=== PATIENT | male | born 1940 | race Caucasian/White ===

== ENCOUNTER → 2017-04-04 | Outpatient (CLI) | payer MEDICARE, OTHER ==
[2014-10-04 14:53] VITALS: BMI 31.2
[~2017-04-04] MED LIST: ACE500 PO; ADV250/50 INH; ALB0.5 INH; ALBU8.5H IH; ASC500 PO; ASPI-715 PO; AZIT-17 PO; AZIT1PAC21 PO; CAR3.125 PO; CAR6.25 PO; CARV12.577 PO; CEPH250C11; CEPH250C11 PO; CHOL100052 PO; CIPR-214 PO; CIPR-344 PO; CYAN100088 PO; DICL-195 PO; DIPH1TAB PO; DOXY-228 PO; ERG400 PO; ERGO500025 PO; FENT-16 TD; FENT-23 TD; FERR27TA3 PO; FERR325T14 PO; FLU IM; FLU180SY9 IM; FLU45SYR17 IM; FLU45SYR25 IM ONLY; FLUC100T39 PO; FLUT12HF2 IH; FLUT1AER INH; FOLI-68 PO; FUR40 PO; FURO-45 PO; FURO20TA19 PO; FURO40TA35 PO; GAB300 PO; GABA-549 PO; GUALA600 PO; HYD2 PO; HYDR-393 PO; IPRA0.2S31 IH; LEVO-85 PO; LEVO750T25 PO; LOP2 PO; LOR5 PO; LOR7.5/325 PO; METH4TAB66 PO; OXYC-375 PO; OXYC-865 PO; PNEU0.5D3 IM; POT10 PO; POTA-23 PO; POTA20PA10 PO; QUE100 PO; QUET200T PO; QUET50TA PO; RAMI2.5C42 PO; ROBC PO; SERT-177 PO; SERT-181 PO; SIMV-44 PO; SIMV-49 PO; SPIR25TA78 PO; SULF-198 PO; TAMS0.4C69 PO; TAMS0.4C70 PO; TAMS0.4C76 PO; VANC125C3 PO; VENTOLIN HFA PUFF; ZOL5 PO; [UNRECOGNIZED DRUG - CODE] PO; hydrocodone PO
[2017-04-04 11:19] LABS: PLATELET COUNT, AUTOMATED 112 K/uL (150-450)
== END ==
LOC: LAB 10:57
PROVIDERS: ATTEND Internal Medicine
DX: I10 Essential (primary) hypertension (principal); E87.6 Hypokalemia; G47.00 Insomnia, unspecified; I25.10 Atherosclerotic heart disease of native coronary artery without angina pectoris; R73.01 Impaired fasting glucose; G89.4 Chronic pain syndrome; C61 Malignant neoplasm of prostate
CPT/HCPCS: 36415; 82040; 82247; 82310; 82374; 82435; 82565; 82947; 83036; 83735; 84075; 84132; 84155; 84295; 84443; 84450; 84460; 84520; 85025

== ENCOUNTER 2017-04-28 14:00 | Inpatient (IN) | payer MEDICARE, OTHER ==
[~2017-04-28] VITALS: Ht 180.3 cm; Wt 108.9 kg
[2017-04-28] MEDS ORDERED: FURO40TA35 PO (14:19)
--- NOTE | 2017-04-28 14:21 | ER Report ---
History and Physical Time Seen By MD: 14:21 Hx. of Stated Complaint: N/V, WEAKNESS, WORSENING CHEST PAIN HPI/ROS 76-year-old male ambulatory to the ER has seen his primary care physician this morning states that he is nauseated vomiting and has had a subjective fever anorexia is 1-1/2 weeks . vomiting yesterday and today was here to be evaluated by his primary care physician started vomiting in the waiting room was brought to the emergency room Allergies: Coded Allergies: meperidine (Verified Allergy, Severe, MAKES HIM VIOLENTLY ILL, DROPS HIS BP, 09/27/15) albuterol (Verified Adverse Reaction, Mild, MAKES FACE NUMB, FLUSH, ) Home Meds Active Scripts Fentanyl 100 Mcg Patch (FENTANYL 100 MCG PATCH) 1 Each Patch.td72, 1 EACH TD Q48H, #15 PATCH.72H refill on or after 06/20/2017 Prov:DANIELA CRUZ MD 04/28/17 Acetaminophen/Hydrocodone (HYDROCODON-ACETAMINOPHN 10-325) 1 Each Tab, 1 TAB PO BID Y for prn, #60 TAB 0 Refills Refill on or after 06/20/2017 Prov:DANIELA CRUZ MD 04/28/17 Quetiapine Fumarate (QUETIAPINE FUMARATE) 50 Mg Tablet, 50 MG PO QHS, #90 TAB 1 Refill Prov:DANIELA CRUZ MD 04/04/17 Potassium Chloride (KLOR-CON 10) 10 Meq Tablet.er, 10 MEQ PO QDAY, #30 TAB 6 Refills Prov:DANIELA CRUZ MD 07/04/16 Sertraline Hcl (SERTRALINE HCL) 100 Mg Tablet, 1.5 TAB PO DAILY, #135 TAB 1 Refill Prov:DANIELA CRUZ MD 03/11/16 Reported Medications Furosemide (LASIX) 40 Mg Tablet, 1 TAB PO Q8H, TAB 04/28/17 Folic Acid (FOLIC ACID) 1 Mg Tablet, 1 MG PO QDAY, TAB 12/07/15 Cyanocobalamin (Vitamin B-12) (B-12) 1,000 Mcg Tablet.er, 1000 MCG PO QDAY 12/07/15 Cephalexin Monohydrate (CEPHALEXIN) 250 Mg Cap, #90 10/07/14 Discontinued Reported Medications Fluticasone/Vilanterol 100/25 Mcg/Inh (BREO ELLIPTA 100/25 MCG) 1 Each Aer.pow.ba, 1 INH INH QDAY, INH 10/14/16 Discontinued Scripts Fentanyl 100 Mcg Patch (FENTANYL 100 MCG PATCH) 1 Each Patch.td72, 1 EACH TD Q48H, #15 PATCH.72H Prov:DANIELA CRUZ MD 04/22/17 Acetaminophen/Hydrocodone (HYDROCODON-ACETAMINOPHN 10-325) 1 Each Tab, 1 TAB PO BID Y for prn, #60 TAB 0 Refills Refill on or after 03/25/18 Prov:DANIELA CRUZ MD 04/22/17 Past Medical/Surgical History Past surgical history of pacemaker in 2009 colostomy in 2012 rectal surgery in 2012 3 para colovesicular fistula past medical history chronic pelvic pain history of CHF history of bile viral myocarditis history of hyperlipidemia history of COPD history of sleep apnea history of GERD history of indwelling urine catheter since repair of the rectal vesicular fistula 12 or 13 history of dermatitis history depression history of elevated glucose Reviewed Nurses Notes: Yes Old Medical Records Reviewed: Yes Hx Smoking: Yes Smoking Status: Former Smoker Exposure to Second Hand Smoke?: No Hx Substance Use Disorder: No Hx Alcohol Use: No Family History of: HTN Constitutional Vital Sign - Last 24 Hours 04/28/17 04/28/17 04/28/17 04/28/17 14:12 14:13 14:30 14:30 Temp 98.6 Pulse 91 84 Resp 24 20 B/P (MAP) 175/76 (109) 175/76 Pulse Ox 91 90 O2 Delivery Nasal Cannula O2 Flow Rate 2.0 04/28/17 04/28/17 04/28/17 04/28/17 14:57 15:00 15:30 17:00 Pulse 80 73 Resp 10 20 B/P (MAP) 155/74 (101) 155/77 (103) 141/60 (87) 138/53 (81) Intake and Output 04/28/17 04/28/17 04/29/17 15:00 23:00 07:00 Intake Total 1100 ml Balance 1100 ml Physical Exam 76 year old male appears chronically ill. casey, tm non reddened, mucous membranes dry, hrr, lungs diminished , pain right chest to right cva , abdomen obese , bs x 4 Medical Decision Making Data Points Result Diagram: 04/28/17 0000 04/28/17 0000 Laboratory Hematology Test 04/28/17 00:00 04/28/17 14:42 Red Blood Count 4.48 M/uL (4.00-5.60) Mean Corpuscular Volume 89.8 fL (80.0-96.0) Mean Corpuscular Hemoglobin 30.7 pg (26.0-33.0) Mean Corpuscular Hemoglobin Concent 34.2 g/dL (32.0-36.0) Red Cell Distribution Width 14.6 % (11.5-14.5) Mean Platelet Volume 7.4 fL (7.2-11.1) Neutrophils (%) (Auto) 88.3 % (39.4-72.5) Lymphocytes (%) (Auto) 5.0 % (17.6-49.6) Monocytes (%) (Auto) 4.1 % (4.1-12.4) Eosinophils (%) (Auto) 1.4 % (0.4-6.7) Basophils (%) (Auto) 1.2 % (0.3-1.4) Nucleated RBC Relative Count (auto) 0.0 /100WBC Neutrophils # (Auto) 4.5 K/uL (2.0-7.4) Lymphocytes # (Auto) 0.3 K/uL (1.3-3.6) Monocytes # (Auto) 0.2 K/uL (0.3-1.0) Eosinophils # (Auto) 0.1 K/uL (0.0-0.5) Basophils # (Auto) 0.1 K/uL (0.0-0.1) Nucleated RBC Absolute Count (auto) 0.00 K/uL Sodium Level 142 mmol/L (137-145) Potassium Level 3.4 mmol/L (3.5-5.0) Chloride Level 98 mmol/L (98-107) Carbon Dioxide Level 27 mmol/L (22-30) Blood Urea Nitrogen 12 mg/dl (9-21) Creatinine 1.00 mg/dl (0.66-1.25) Glomerular Filtration Rate Calc > 60.0 Random Glucose 132 mg/dl (75-110) Calcium Level 9.0 mg/dl (8.4-10.2) Total Bilirubin 1.2 mg/dl (0.2-1.3) Aspartate Amino Transf (AST/SGOT) 38 U/L (0-35) Alanine Aminotransferase (ALT/SGPT) 50 U/L (0-56) Alkaline Phosphatase 98 U/L (0-126) Troponin I < 0.012 ng/ml Total Protein 8.1 gm/dl (6.3-8.2) Albumin 4.4 g/dl (3.5-5.0) Lipase 91 U/L (23-300) Influenza Virus Type A (PCR) Negative (NEGATIVE) Influenza Virus Type B (PCR) Negative (NEGATIVE) Urine Color Yellow Urine Clarity Cloudy Urine pH 5.0 pH (4.8-9.5) Urine Specific [place] 1.026 Urine Protein 100 mg/dL (NEGATIVE) Urine Glucose (UA) Negative mg/dL (NEGATIVE) Urine Ketones Negative mg/dL (NEGATIVE) Urine Blood Large (NEGATIVE) Urine Nitrite Positive (NEGATIVE) Urine Bilirubin Negative (NEGATIVE) Urine Urobilinogen Negative mg/dL (0.2-1.9) Urine Leukocyte Esterase Large (NEGATIVE) Urine RBC 423 /HPF (0-2/HPF) Urine WBC 136 /HPF (0-5/HPF) Urine Squamous Epithelial Cells Many /LPF (</=FEW) Urine Bacteria Few /HPF (NONE-FEW) Urine Mucus Few /HPF (NONE-FEW) Chemistry Test 04/28/17 00:00 04/28/17 14:42 White Blood Count 5.1 k/uL (4.5-11.0) Red Blood Count 4.48 M/uL (4.00-5.60) Hemoglobin 13.8 g/dL (14.0-18.0) Hematocrit 40.2 % (42.0-52.0) Mean Corpuscular Volume 89.8 fL (80.0-96.0) Mean Corpuscular Hemoglobin 30.7 pg (26.0-33.0) Mean Corpuscular Hemoglobin Concent 34.2 g/dL (32.0-36.0) Red Cell Distribution Width 14.6 % (11.5-14.5) Platelet Count 119 K/uL (150-450) Mean Platelet Volume 7.4 fL (7.2-11.1) Neutrophils (%) (Auto) 88.3 % (39.4-72.5) Lymphocytes (%) (Auto) 5.0 % (17.6-49.6) Monocytes (%) (Auto) 4.1 % (4.1-12.4) Eosinophils (%) (Auto) 1.4 % (0.4-6.7) Basophils (%) (Auto) 1.2 % (0.3-1.4) Nucleated RBC Relative Count (auto) 0.0 /100WBC Neutrophils # (Auto) 4.5 K/uL (2.0-7.4) Lymphocytes # (Auto) 0.3 K/uL (1.3-3.6) Monocytes # (Auto) 0.2 K/uL (0.3-1.0) Eosinophils # (Auto) 0.1 K/uL (0.0-0.5) Basophils # (Auto) 0.1 K/uL (0.0-0.1) Nucleated RBC Absolute Count (auto) 0.00 K/uL Glomerular Filtration Rate Calc > 60.0 Calcium Level 9.0 mg/dl (8.4-10.2) Total Bilirubin 1.2 mg/dl (0.2-1.3) Aspartate Amino Transf (AST/SGOT) 38 U/L (0-35) Alanine Aminotransferase (ALT/SGPT) 50 U/L (0-56) Alkaline Phosphatase 98 U/L (0-126) Troponin I < 0.012 ng/ml Total Protein 8.1 gm/dl (6.3-8.2) Albumin 4.4 g/dl (3.5-5.0) Lipase 91 U/L (23-300) Influenza Virus Type A (PCR) Negative (NEGATIVE) Influenza Virus Type B (PCR) Negative (NEGATIVE) Urine Color Yellow Urine Clarity Cloudy Urine pH 5.0 pH (4.8-9.5) Urine Specific [place] 1.026 Urine Protein 100 mg/dL (NEGATIVE) Urine Glucose (UA) Negative mg/dL (NEGATIVE) Urine Ketones Negative mg/dL (NEGATIVE) Urine Blood Large (NEGATIVE) Urine Nitrite Positive (NEGATIVE) Urine Bilirubin Negative (NEGATIVE) Urine Urobilinogen Negative mg/dL (0.2-1.9) Urine Leukocyte Esterase Large (NEGATIVE) Urine RBC 423 /HPF (0-2/HPF) Urine WBC 136 /HPF (0-5/HPF) Urine Squamous Epithelial Cells Many /LPF (</=FEW) Urine Bacteria Few /HPF (NONE-FEW) Urine Mucus Few /HPF (NONE-FEW) Urinalysis Test 04/28/17 14:42 Urine Color Yellow Urine Clarity Cloudy Urine pH 5.0 pH (4.8-9.5) Urine Specific [place] 1.026 Urine Protein 100 mg/dL (NEGATIVE) Urine Glucose (UA) Negative mg/dL (NEGATIVE) Urine Ketones Negative mg/dL (NEGATIVE) Urine Blood Large (NEGATIVE) Urine Nitrite Positive (NEGATIVE) Urine Bilirubin Negative (NEGATIVE) Urine Urobilinogen Negative mg/dL (0.2-1.9) Urine Leukocyte Esterase Large (NEGATIVE) Urine RBC 423 /HPF (0-2/HPF) Urine WBC 136 /HPF (0-5/HPF) Urine Squamous Epithelial Cells Many /LPF (</=FEW) Urine Bacteria Few /HPF (NONE-FEW) Urine Mucus Few /HPF (NONE-FEW) EKG/Imaging EKG Interpretation EKG at 1414 paced rhythm rate 88 Imaging FACILITY: [facility] PATIENT NAME: Cal Arboleda : 1940 MR: [id number] V: [id number] EXAM DATE: ORDERING PHYSICIAN: ESTEPHANIA WING TECHNOLOGIST: Location: [facility] - [place] Patient: Cal Arboleda : 1940 Visit/Account:[id number] Date of Sevice: 04/28/2017 CT abdomen and pelvis without contrast Indication: Vomiting. Comparison: 02/04/2017. Technique: Axial CT images are obtained through the abdomen and pelvis. Reformatted coronal and sagittal images were reviewed. IV contrast was not administered. One of the following dose optimization techniques was utilized in the performance of this exam: automated exposure control; adjustment of the mA and/ or kV according to the patient's size; or use of an iterative reconstruction technique. Specific details can be referenced in the facility's radiology CT exam operational policy. Findings: Lower lung teixeira: The left lower lobe does show 2 stable subcentimeter nodules and scarring. There is a stable subcentimeter nodule seen in the right middle lobe. The largest in the left lower lobe measures 7 mm. No focal consolidations or pleural effusion. Evaluation of the solid organs of the abdomen is limited without IV contrast. Liver: No focal parenchymal abnormality of the liver. Biliary: Gallbladder appears unremarkable as well as the intra and extra hepatic biliary system. Pancreas: No focal normality. Spleen: Continues show mild enlargement measuring 14.8 cm and the AP dimension and not significantly changed. No focal abnormality. Adrenal glands: Right adrenal gland shows a stable 1.6 cm adenoma. Left adrenal gland is unremarkable. Kidneys / retroperitoneum: No evidence of nephrolithiasis or hydronephrosis. No focal normality. Bowel / peritoneum / mesenteries: Ostomy is in place in the mid left abdomen without focal abnormality. The distal colon is decompressed with multiple sigmoid diverticula without pericolonic inflammation. The remaining colon shows no focal abnormality. The appendix is normal. The small bowel shows no focal abnormality or obstruction. The stomach is unremarkable. There may be a small hiatal hernia. No free air, free fluid, fluid collections or areas of inflammation. Small umbilical hernia containing fat. Lymph node assessment: No pathologic adenopathy identified. Pelvic structures: Urinary bladder contains a Arnett catheter and is decompressed. Prostate again shows multiple metallic seeds. The remaining pelvic structures visualized within normal limits. Vessels: Mild atherosclerotic calcifications seen throughout a nonaneurysmal abdominal aorta and branches. Musculoskeletal / Body wall: No acute or aggressive osseous abnormality. Mild degenerative changes of the spine. IMPRESSION: 1. No acute intra-abdominal abnormality identified. 2. Colostomy is in place without sequelae. Sigmoid diverticulosis without radiographic indication diverticulitis. 3. Other chronic stable findings as above. Report Dictated By: Tarun Rivas at 04/28/2017 4:12 PM Report E-Signed By: Tarun Rivas at 04/28/2017 4:26 PM WSN:[id number] ED Course/Re-evaluation Clinical Indication for ER IV: Hydration ED Course Discussed patient with hospitalist Dr. Kruger agreed to admit patient to observation for UTI nausea and vomiting Re-evaluation CT chest reading is no acute abnormality, remains nauseated after zofran and promethazine Decision to Disposition Date: Apr 28, 2017 Decision to Disposition Time: 17:09 Depart Departure Latest Vital Signs Vital Signs Date Time Temp Pulse Resp B/P (MAP) Pulse Ox O2 Delivery O2 Flow Rate FiO2 04/28/17 17:00 138/53 (81) 04/28/17 15:30 73 20 04/28/17 14:30 2.0 04/28/17 14:30 90 04/28/17 14:13 98.6 Nasal Cannula Impression: Primary Impression: History of colostomy Additional Impressions: Chronic indwelling Arnett catheter UTI (urinary tract infection) Vomiting Condition: Condition Unchanged Disposition: Admitted from ER Referrals: DANIELA CRUZ MD (PCP) Problem Qualifiers ESTEPHANIA WING Apr 28, 2017 14:21
[2017-04-28] MEDS ORDERED: ONDANSETRON 4 MG/2 ML VIAL IVP ONE (14:25)
[2017-04-28] MEDS ORDERED: NS(*) 0.9% 1000 ML BAG 1,000 ML IV ONE (14:25)
[2017-04-28 14:39] LABS: PLATELET COUNT, AUTOMATED 119 K/uL (150-450)
[2017-04-28] MEDS ORDERED: fentaNYL CITR 100 MCG/2 ML AMP IVP ONE (15:20)
[2017-04-28] MEDS ORDERED: cefTRIAXone(*) 1 GM VIAL 1 GM in NS(*) 0.9% 100 ML ADDVANT BAG 100 ML IVPB ONE (15:30)
--- NOTE | 2017-04-28 16:30 | RADIOLOGY IMAGING REPORT ---
[place] [facility] [place] Cal Arboleda : 1940 MR: [id number] V: [id number] EXAM DATE: ORDERING PHYSICIAN: ESTEPHANIA WING TECHNOLOGIST: Location: [facility] Patient: Cal Arboleda : 1940 Visit/Account:[id number] Date of Sevice: 04/28/2017 CT abdomen and pelvis without contrast Indication: Vomiting. Comparison: 02/04/2017. Technique: Axial CT images are obtained through the abdomen and pelvis. Reformatted coronal and sagit richard images were reviewed. IV contrast was not administered. One of the following dose optimization techniques was utilized in the performance of this exam: auto mated exposure control; adjustment of the mA and/or kV according to the patient's size; or use of an iterative reconstruction technique. Specific details can be referenced in the facility's radiology C T exam operational policy. Findings: Lower lung teixeira: The left lower lobe does show 2 stable subcentimeter nodules and scarring. There i s a stable subcentimeter nodule seen in the right middle lobe. The largest in the left lower lobe bryan sures 7 mm. No focal consolidations or pleural effusion. Evaluation of the solid organs of the abdomen is limited without IV contrast. Liver: No focal parenchymal abnormality of the liver. Biliary: Gallbladder appears unremarkable as well as the intra and extra hepatic biliary system. Pancreas: No focal normality. Spleen: Continues show mild enlargement measuring 14.8 cm and the AP dimension and not significantly changed. No focal abnormality. Adrenal glands: Right adrenal gland shows a stable 1.6 cm adenoma. Left adrenal gland is unremarkable . Kidneys / retroperitoneum: No evidence of nephrolithiasis or hydronephrosis. No focal normality. Bowel / peritoneum / mesenteries: Ostomy is in place in the mid left abdomen without focal abnormalit y. The distal colon is decompressed with multiple sigmoid diverticula without pericolonic inflammatio n. The remaining colon shows no focal abnormality. The appendix is normal. The small bowel shows no f ocal abnormality or obstruction. The stomach is unremarkable. There may be a small hiatal hernia. No free air, free fluid, fluid collections or areas of inflammation. Small umbilical hernia containin g fat. Lymph node assessment: No pathologic adenopathy identified. Pelvic structures: Urinary bladder contains a Arnett catheter and is decompressed. Prostate again s hows multiple metallic seeds. The remaining pelvic structures visualized within normal limits. Vessels: Mild atherosclerotic calcifications seen throughout a nonaneurysmal abdominal aorta and bran ches. Musculoskeletal / Body wall: No acute or aggressive osseous abnormality. Mild degenerative changes of the spine. IMPRESSION: 1. No acute intra-abdominal abnormality identified. 2. Colostomy is in place without sequelae. Sigmoid diverticulosis without radiographic indication div erticulitis. 3. Other chronic stable findings as above. Report Dictated By: Tarun Rivas at 04/28/2017 4:12 PM Report E-Signed By: Tarun Rivas at 04/28/2017 4:26 PM WSN:[id number]
[2017-04-28] MEDS ORDERED: PROMETHAZINE 25 MG/ML 1 ML AMP IVP ONE (17:00)
[2017-04-28 18:07] VITALS: BP 127/91
--- NOTE | 2017-04-28 18:57 | History & Physical ---
History of Present Illness Chief Complaint Back pain/nausea and vomiting History of Present Illness 76yo male with extensive PMHx including prostate cancer, suprapubic catheter following surgery for rectovesical fistula surgery, diverting colostomy, chronic pelvic pain, BRIDGETT. He states he had onset of increasing back pain with associated nausea approximately 1-2 weeks ago. He has not appreciated any obvious fevers or chills. He has been having more pelvic pain with what he feels are bladder spasms as well. He does still have some urinary and rectal drainage of urine with these spasms occasionally. He denies any black or bloody vomitus. He denies any bloody ostomy drainage. He did state he had some dark drainage in his ostomy a few days ago. He was evaluated in the ER and found to have pyuria from his suprapubic cath. His WBC count was in normal range. He was recommended for admission. History Problems: (1) Peripheral neuropathy Status: Chronic (2) Hypercholesterolemia Status: Chronic (3) Congestive heart failure Status: Chronic (4) COPD (chronic obstructive pulmonary disease) Status: Chronic (5) GERD (gastroesophageal reflux disease) Status: Chronic (6) CAD (coronary artery disease) Status: Chronic (7) Depression, endogenous Status: Chronic (8) Hypertension Status: Chronic (9) Prostate cancer Status: Chronic (10) Pacemaker Status: Chronic (11) BRIDGETT on CPAP Status: Chronic (12) Ankle fracture, right Onset Date: 09/30/2014 Status: Resolved (13) Suprapubic catheter Status: Chronic (14) History of cardiac catheterization Status: Resolved (15) History of colostomy Status: Chronic Home Meds Active Scripts Fentanyl 100 Mcg Patch (FENTANYL 100 MCG PATCH) 1 Each Patch.td72, 1 EACH TD Q48H, #15 PATCH.72H refill on or after 06/20/2017 Prov:DANIELA CRUZ MD 04/28/17 Acetaminophen/Hydrocodone (HYDROCODON-ACETAMINOPHN 10-325) 1 Each Tab, 1 TAB PO BID Y for prn, #60 TAB 0 Refills Refill on or after 06/20/2017 Prov:DANIELA CRUZ MD 04/28/17 Quetiapine Fumarate (QUETIAPINE FUMARATE) 50 Mg Tablet, 50 MG PO QHS, #90 TAB 1 Refill Prov:DANIELA CRUZ MD 04/04/17 Potassium Chloride (KLOR-CON 10) 10 Meq Tablet.er, 10 MEQ PO QDAY, #30 TAB 6 Refills Prov:DANIELA CRUZ MD 07/04/16 Sertraline Hcl (SERTRALINE HCL) 100 Mg Tablet, 1.5 TAB PO DAILY, #135 TAB 1 Refill Prov:DANIELA CRUZ MD 03/11/16 Reported Medications Furosemide (LASIX) 40 Mg Tablet, 1 TAB PO Q8H, TAB 04/28/17 Folic Acid (FOLIC ACID) 1 Mg Tablet, 1 MG PO QDAY, TAB 12/07/15 Cyanocobalamin (Vitamin B-12) (B-12) 1,000 Mcg Tablet.er, 1000 MCG PO QDAY 12/07/15 Cephalexin Monohydrate (CEPHALEXIN) 250 Mg Cap, #90 10/07/14 Discontinued Reported Medications Fluticasone/Vilanterol 100/25 Mcg/Inh (BREO ELLIPTA 100/25 MCG) 1 Each Aer.pow.ba, 1 INH INH QDAY, INH 10/14/16 Discontinued Scripts Fentanyl 100 Mcg Patch (FENTANYL 100 MCG PATCH) 1 Each Patch.td72, 1 EACH TD Q48H, #15 PATCH.72H Prov:DANIELA CRUZ MD 04/22/17 Acetaminophen/Hydrocodone (HYDROCODON-ACETAMINOPHN 10-325) 1 Each Tab, 1 TAB PO BID Y for prn, #60 TAB 0 Refills Refill on or after 03/25/18 Prov:DANIELA CRUZ MD 04/22/17 Allergies: Coded Allergies: meperidine (Verified Allergy, Severe, MAKES HIM VIOLENTLY ILL, DROPS HIS BP, 09/27/15) albuterol (Verified Adverse Reaction, Mild, MAKES FACE NUMB, FLUSH, ) Patient History: FH: [place] (myocardial infarction) FATHER, , Age:67 FH: cancer SISTER FH: diabetes mellitus SISTER FH: esophageal cancer FATHER, , Age:67 FH: renal failure SISTER Osteoarthritis SISTER Hx Smoking: Yes Smoking Status: Former Smoker Exposure to Second Hand Smoke?: No Caffeine Intake: Soda Caffeine/Cups Per Day: 1 Hx Alcohol Use: No Hx Substance Use Disorder: No Review of Systems Constitutional: No Fever, No Chills Neurological: Weakness Eyes: No Vision Change, No Loss of Vision ENT: No Hearing Loss Cardiovascular: No Chest Pain Respiratory: No Shortness of Breath, No Cough, No Wheezing Gastrointestinal: Nausea, Vomiting, No Hematemesis, No Hematochezia, Melena, Abdominal Pain Genitourinary: Urinary Incontinence Musculoskeletal: Pain Psychiatric: Depression Exam Vital Signs Vital Signs Date Time Temp Pulse Resp B/P (MAP) Pulse Ox O2 Delivery O2 Flow Rate FiO2 04/28/17 18:19 92 Nasal Cannula 3.0 04/28/17 18:07 98.2 83 16 127/91 (103) General Appearance: Alert, Awake Neuro: Other (motor exam grossly normal) Eyes: PERRLA ENT: Oropharynx Clear Neck: No Masses Cardiovascular: Regular Rate and Rhythm Respiratory: Clear to Auscultation Chest: No Tenderness GI: Other (distended/LUQ ostomy with greenish brown stool/healed surgical scars in LLQ and suprapubic area/suprapubic cath in place) : No CVA Tenderness Lymph: No Adenopathy Extremities: Warm, Perfused Integumentary: Skin Intact without Lesion / Mass Psych: Alert & Oriented X3 Medical Decision Making Data Points Result Diagram: 04/28/17 0000 04/28/17 0000 Item Value Date Time Lipase 123 U/L 04/28/17 1247 Amylase Level 67 U/L 04/28/17 1247 Albumin 4.0 g/dl 04/28/17 1247 Total Protein 7.3 gm/dl 04/28/17 1247 Alkaline Phosphatase 91 U/L 04/28/17 1247 Alanine Aminotransferase (ALT/SGPT) 47 U/L 04/28/17 1247 Aspartate Amino Transf (AST/SGOT) 32 U/L 04/28/17 1247 Total Bilirubin 1.1 mg/dl 04/28/17 1247 Calcium Level 8.7 mg/dl 04/28/17 1247 Troponin I < 0.012 ng/ml 04/28/17 0000 Urine Color Yellow 04/28/17 1442 Urine Clarity Cloudy 04/28/17 1442 Urine pH 5.0 pH 04/28/17 1442 Urine Specific [place] 1.026 04/28/17 1442 Urine Protein 100 mg/dL 04/28/17 1442 Urine Glucose (UA) Negative mg/dL 04/28/17 1442 Urine Ketones Negative mg/dL 04/28/17 1442 Urine Blood Large 04/28/17 1442 Urine Nitrite Positive H 04/28/17 1442 Urine Bilirubin Negative 04/28/17 1442 Urine Urobilinogen Negative mg/dL 04/28/17 1442 Urine Leukocyte Esterase Large H 04/28/17 1442 Urine RBC 423 /HPF 04/28/17 1442 Urine WBC 136 /HPF 04/28/17 1442 Urine Squamous Epithelial Cells Many /LPF H 04/28/17 1442 Urine Bacteria Few /HPF 04/28/17 1442 Urine Mucus Few /HPF 04/28/17 1442 Influenza Virus Type B (PCR) Negative 04/28/17 0000 Influenza Virus Type A (PCR) Negative 04/28/17 0000 EKG / Imaging Imaging PATIENT NAME: Cal Arboleda : 1940 MR: [id number] V: [id number] EXAM DATE: [id number] ORDERING PHYSICIAN: JACQUELYN REYES TECHNOLOGIST: [place] [facility] [place] : 1940 Visit/Account:[id number] Date of Sevice: 04/28/2017 CT chest without contrast Indication: Shortness of breath. Comparison: None available Technique: Axial CT images are obtained through the chest without administration of IV contrast. One of the following dose optimization techniques was utilized in the performance of this exam: Automated exposure control; adjustment of the mA and/ or kV according to the patient's size; or use of an iterative reconstruction technique. Specific details can be referenced in the facility's radiology CT exam operational policy.Reformatted coronal and sagittal images were reviewed. Findings: Heart is normal size without pericardial effusion. Left subclavian pacemakers in place. The aorta does show mild atherosclerotic calcific changes without aneurysm. Pulmonary arteries are grossly normal. There is no mediastinal hematoma and there is no pathologic mediastinal adenopathy seen. The left lung shows at least 4 nodules. Left upper lobe on image #21 measuring 4 mm, subcentimeter pleural-based calcific nodule on image #24, left lateral lower lobe on image #79 measuring 7 mm and left lower lobe laterally on image # 82 measuring 5 mm. The right middle lobe does show a 3 mm nodule on image #68. No other discrete lung nodules. No focal consolidation, pleural effusion, pneumothorax or focal interstitial opacities. Airways are clear. Scarring in the left lower lobe. Bony structures show no acute fractures or discrete lesions. Mild degenerative changes spine. Chest wall shows no enlarged axillary lymph nodes or masses. The right adrenal gland does show 1.3 cm nodule [place]oun[place] of 9 consistent with benign adenoma. This is unchanged from the CT of the abdomen pelvis on 2005. Upper abdomen is otherwise unremarkable. IMPRESSION: 1. No acute cardiopulmonary disease. 2. Bilateral lung nodules. These are too small characterize and could be postinflammatory as there is one calcified nodule representing granuloma. The 2 left lower lobe nodules appear similar to the CT abdomen pelvis on 03/28/2006. As the upper lobe nodules were not previously visualized or imaged. Suggest follow-up per Fleischner guidelines described below. 3. Stable right adrenal gland adenoma. FLEISCHNER SOCIETY FOLLOW-UP GUIDELINES FOR NEWLY DETECTED INCIDENTAL NODULES IN PERSONS 35 YEARS OF AGE OR OLDER. *THESE RECOMMENDATIONS DO NOT APPLY TO LUNG CANCER SCREENING, PATIENTS WITH IMMUNOSUPPRESSION , OR PATIENTS WITH KNOWN PRIMARY MALIGNANCY. MULTIPLE SOLID NODULES If largest nodule size is less than 6 mm: Low risk patient - no follow up needed High risk patient - Optional CT at 12 months. If largest nodule size is 6-8 mm: Low risk patient - follow up CT at 3-6 months, then consider CT at 18-24 months if no change. High risk patient - follow up CT at 3-6 months, then CT at 18-24 months if no change. If largest nodule size is greater than 8 mm: Low risk patient - follow up CT at 3-6 months, then consider CT at 18-24 months High risk patient - follow up CT at 3-6 months, then at 18-24 months LOW RISK PATIENT: Minimal or absent history of tobacco use and of other known risk factors. HIGH RISK PATIENT: Tobacco use, family history of lung cancer, upper pulmonary lobe location of nodule, presence of emphysema, pulmonary fibrosis, older age. Gema H, Tiffany DP, Frankie JM, et al. Guidelines for Management of Incidental Pulmonary Nodules Detected on CT Images: From the Fleischner Society 2017. Radiology. Report Dictated By: Tarun Rivas at 04/28/2017 3:01 PM Report E-Signed By: Tarun Rivas at 04/28/2017 3:09 PM [id number] PATIENT NAME: Cal Arboleda : 1940 MR: [id number] V: [id number] EXAM DATE: ORDERING PHYSICIAN: ESTEPHANIA WNIG TECHNOLOGIST: [place] [facility] [place] Arbol[place] : 1940 Visit/Account:[id number] Date of Sevice: 04/28/2017 CT abdomen and pelvis without contrast Indication: Vomiting. Comparison: 02/04/2017. Technique: Axial CT images are obtained through the abdomen and pelvis. Reformatted coronal and sagittal images were reviewed. IV contrast was not administered. One of the following dose optimization techniques was utilized in the performance of this exam: automated exposure control; adjustment of the mA and/ or kV according to the patient's size; or use of an iterative reconstruction technique. Specific details can be referenced in the facility's radiology CT exam operational policy. Findings: Lower lung teixeira: The left lower lobe does show 2 stable subcentimeter nodules and scarring. There is a stable subcentimeter nodule seen in the right middle lobe. The largest in the left lower lobe measures 7 mm. No focal consolidations or pleural effusion. Evaluation of the solid organs of the abdomen is limited without IV contrast. Liver: No focal parenchymal abnormality of the liver. Biliary: Gallbladder appears unremarkable as well as the intra and extra hepatic biliary system. Pancreas: No focal normality. Spleen: Continues show mild enlargement measuring 14.8 cm and the AP dimension and not significantly changed. No focal abnormality. Adrenal glands: Right adrenal gland shows a stable 1.6 cm adenoma. Left adrenal gland is unremarkable. Kidneys / retroperitoneum: No evidence of nephrolithiasis or hydronephrosis. No focal normality. Bowel / peritoneum / mesenteries: Ostomy is in place in the mid left abdomen without focal abnormality. The distal colon is decompressed with multiple sigmoid diverticula without pericolonic inflammation. The remaining colon shows no focal abnormality. The appendix is normal. The small bowel shows no focal abnormality or obstruction. The stomach is unremarkable. There may be a small hiatal hernia. No free air, free fluid, fluid collections or areas of inflammation. Small umbilical hernia containing fat. Lymph node assessment: No pathologic adenopathy identified. Pelvic structures: Urinary bladder contains a Arnett catheter and is decompressed. Prostate again shows multiple metallic seeds. The remaining pelvic structures visualized within normal limits. Vessels: Mild atherosclerotic calcifications seen throughout a nonaneurysmal abdominal aorta and branches. Musculoskeletal / Body wall: No acute or aggressive osseous abnormality. Mild degenerative changes of the spine. IMPRESSION: 1. No acute intra-abdominal abnormality identified. 2. Colostomy is in place without sequelae. Sigmoid diverticulosis without radiographic indication diverticulitis. 3. Other chronic stable findings as above. Report Dictated By: Tarun Rivas at 04/28/2017 4:12 PM Report E-Signed By: Tarun Rivas at 04/28/2017 4:26 PM [id number] Assessment and Plan Problems: (1) UTI (urinary tract infection) Status: Acute Assessment & Plan: Complicated UTI related to suprapubic cath (or possibly persistent rectovesical fistula). Will culture his urine as well as drainage from penis/rectum. Will cover broadly with IV Primaxin and vancomycin. Modify antibiotics based on culture results. (2) Suprapubic catheter Status: Chronic (3) Vomiting Status: Acute Assessment & Plan: I suspect this is probably related to his acute infection. Will give gentle IV fluids and antiemetics. Watch closely. (4) BRIDGETT on CPAP Status: Chronic Assessment & Plan: Continue CPAP. (5) Chronic pain syndrome Status: Chronic Assessment & Plan: Will continue with his 100mcg fentanyl patch (q48hrs) and use low dose IV fentanyl for breakthrough pain. (6) CAD (coronary artery disease) Status: Chronic Assessment & Plan: He appears stable from this standpoint. He isn't really on a regimen for this at this time. (7) Thrombocytopenia Status: Chronic Assessment & Plan: His platelet count has been chronically low. Will hold off on Lovenox for DVT prophylaxis. Will use SCD/XAVI hose and ambulate as soon as feasible. (8) Depression, endogenous Status: Chronic Assessment & Plan: Continue Zoloft. Venous Thromboembolism Antithrombotics Is Pt On Any Antithrombotics?: No Prophylaxis Tx Contraindicated Pharmacological Contraindicati: Low Platelet Count Heart Failure Ejection Fraction %: 58 RVSP (mmHg): 40 NYHA Class: I Is Patient on PETE Inhibitor?: Yes Is Patient on Beta Candida?: No Admission Weight: 236 Exam Sepsis Risk: No Definite Risk BERNABE STAPLETON MD Apr 28, 2017 18:57
[2017-04-28] MEDS: IMIPENEM/CILASTA(*) 500MG VIAL 500 MG in NS(*) 0.9% 100 ML BAG 100 ML IVPB SCH (20:19)
[2017-04-28] MEDS: NS(*) 0.9% 1000 ML BAG 1,000 ML IV PRN (20:19)
[2017-04-28] MEDS: fentaNYL CITR 100 MCG/2 ML AMP IVP PRN (20:28)
[2017-04-28] MEDS: VANCOMYCIN(*) 1 GM VIAL 1 GM, VANCOMYCIN (*) 0.5 GM VIAL 0.5 GM in NS(*) 0.9% 250 ML BA... IVPB SCH (21:44)
[2017-04-28] MEDS: [UNRECOGNIZED DRUG - OTHER] PO SCH (21:44)
[2017-04-28] MEDS: QUETIAPINE FUM PO SCH (21:44)
[2017-04-28 23:18] VITALS: BP 114/82
[2017-04-29] MEDS: IMIPENEM/CILASTA(*) 500MG VIAL 500 MG in NS(*) 0.9% 100 ML BAG 100 ML IVPB SCH ×4 (02:31→19:15)
[2017-04-29] MEDS: fentaNYL CITR 100 MCG/2 ML AMP IVP PRN ×2 (02:34→15:22)
[2017-04-29 02:39] VITALS: BP 109/55
[2017-04-29 06:00] LABS: PLATELET COUNT, AUTOMATED 69 K/uL (150-450)
--- NOTE | 2017-04-29 07:51 | EKG ---
[place] [facility] [place] NAME: TERI PANDYA : [id number] MR: [id number] V: [id number] EXAM DATE: ORDERING PHYSICIAN: CHRIS BENTON TECHNOLOGIST: APOLLO Han Reason : CP Blood Pressure : / mmHG Vent. Rate : 088 BPM Atrial Rate : 088 BPM P-R Int : 124 ms QRS Dur : 122 ms QT Int : 404 ms P-R-T Axes : 048 -71 095 degrees QTc Int : 488 ms Electronic ventricular pacemaker When compared with ECG of 27-SEP-2015 10:15, Vent. rate has increased BY 15 BPM Confirmed by DORYS GUY ([id number]) on 04/29/2017 2:22:16 PM Referred By: SERENITY Confirmed By:DORYS GUY
[2017-04-29 08:08] VITALS: Ht 180.3 cm; Wt 108.9 kg
[2017-04-29 08:29] VITALS: BP 106/53
[2017-04-29] MEDS: ACETAMINOPHEN 325 MG TAB PO PRN (08:43)
[2017-04-29] MEDS: FOLIC ACID 1 MG TAB PO SCH (08:43)
[2017-04-29] MEDS: SERTRALINE HCL 50 MG TAB PO SCH (08:44)
[2017-04-29] MEDS: VANCOMYCIN(*) 1 GM VIAL 1 GM, VANCOMYCIN (*) 0.5 GM VIAL 0.5 GM in NS(*) 0.9% 250 ML BA... IVPB SCH (09:07)
[2017-04-29] MEDS ORDERED: FENTANYL 100 MCG TD SCH (11:30)
[2017-04-29] MEDS: NS(*) 0.9% 1000 ML BAG 1,000 ML IV PRN (11:36)
[2017-04-29 11:37] VITALS: BP 118/55
--- NOTE | 2017-04-29 11:45 | Hospitalist Progress Note ---
Subjective Progress Notes Subjective The patient continues to have back and flank pain. He also has had periods of feeling "hot". Physical Exam Vital Signs Date Time Temp Pulse Resp B/P (MAP) Pulse Ox O2 Delivery O2 Flow Rate FiO2 04/29/17 11:37 98.4 70 18 118/55 (76) 96 Nasal Cannula 2.5 Intake and Output 04/30/17 07:00 Intake Total 100 ml Output Total 450 ml Balance -350 ml IV Total 100 ml Output Urine Total 450 ml General Appearance: Alert, Awake, No Acute Distress, Other (Appears ill.) Neuro: No Gross deficits Eyes: PERRLA Cardiovascular: Regular Rate and Rhythm Respiratory: Other (Decreased BS throughout.) GI: Soft and Non-Tender Extremities: Warm, Perfused, Other (No edema.) Psych: Appropriate Mood & Affect Result Diagram: 04/29/1753204/29/17532 Assessment and Plan Problems: (1) UTI (urinary tract infection) Status: Acute Assessment & Plan: Complicated UTI related to suprapubic cath (or possibly persistent rectovesical fistula). Will culture his urine as well as drainage from penis. He was initially covered broadly with IV Primaxin and vancomycin. Urine culture is growing a gram negative ilan. Will stop Vanco. Will follow cultures and modify antibiotics further as warranted. (2) Suprapubic catheter Status: Chronic (3) Vomiting Status: Acute Assessment & Plan: I suspect this is probably related to his acute infection. Will give gentle IV fluids and antiemetics. Watch closely. (4) BRIDGETT on CPAP Status: Chronic Assessment & Plan: Continue CPAP. (5) Chronic pain syndrome Status: Chronic Assessment & Plan: Will continue with his 100mcg fentanyl patch (q48hrs) and use low dose IV fentanyl for breakthrough pain. (6) CAD (coronary artery disease) Status: Chronic Assessment & Plan: He appears stable from this standpoint. He isn't really on a regimen for this at this time. (7) Thrombocytopenia Status: Chronic Assessment & Plan: His platelet count has been chronically low. Will hold off on Lovenox for DVT prophylaxis. Will use SCD/XAVI hose and ambulate as soon as feasible. (8) Depression, endogenous Status: Chronic Assessment & Plan: Continue Zoloft. Time Spent on Plan of Care: < 30 min Heart Failure Ejection Fraction %: 58 RVSP (mmHg): 40 NYHA Class: I Is Patient on PETE Inhibitor?: Yes Is Patient on Beta Candida?: No Admission Weight: 236 Exam Sepsis Risk: No Definite Risk DORYS STAPLETON MD Apr 29, 2017 11:45
[2017-04-29 15:00] VITALS: BP 127/66
[2017-04-29 18:41] VITALS: BP 133/58
[2017-04-29] MEDS: [UNRECOGNIZED DRUG - OTHER] PO SCH (20:35)
[2017-04-29] MEDS: QUETIAPINE FUM PO SCH (20:35)
[2017-04-30] MEDS: IMIPENEM/CILASTA(*) 500MG VIAL 500 MG in NS(*) 0.9% 100 ML BAG 100 ML IVPB SCH (02:45)
[2017-04-30 02:47] VITALS: BP 133/58
[2017-04-30] MEDS: NS(*) 0.9% 1000 ML BAG 1,000 ML IV PRN (05:41)
[2017-04-30 05:47] LABS: PLATELET COUNT, AUTOMATED 73 K/uL (150-450)
[2017-04-30 08:15] VITALS: BP 147/67
[2017-04-30] MEDS ORDERED: FENTANYL 100 MCG TD SCH (09:00)
[2017-04-30] MEDS: PROMETHAZINE 25 MG/ML 1 ML AMP IVP PRN ×3 (09:10→19:43)
[2017-04-30] MEDS: FOLIC ACID 1 MG TAB PO SCH (09:44)
[2017-04-30] MEDS: fentaNYL CITR 100 MCG/2 ML AMP IVP PRN ×4 (09:44→21:51)
[2017-04-30] MEDS: SERTRALINE HCL 50 MG TAB PO SCH (09:44)
--- NOTE | 2017-04-30 10:41 | Hospitalist Progress Note ---
Subjective Progress Notes Subjective This patient was admitted for a urinary infection. He had no acute events overnight. Patient Complains of: Cardiovascular: No: Chest Pain Respiratory: No: Shortness of Breath Physical Exam Vital Signs Date Time Temp Pulse Resp B/P (MAP) Pulse Ox O2 Delivery O2 Flow Rate FiO2 04/30/17 08:15 98.5 64 18 147/67 (93) 95 Nasal Cannula 2.5 Cardiovascular: Regular Rate and Rhythm Respiratory: Clear to Auscultation Result Diagram: 04/30/17 0533 04/30/17 0533 Item Value Date Time Urine Culture - Final Complete 04/28/17 1442 Cath Urine Pseudomonas Aeruginosa Assessment and Plan Problems: (1) UTI (urinary tract infection) Status: Acute Assessment & Plan: This was considered a complicated infection secondary to a suprapubic cath (or possibly persistent rectovesical fistula). He was initially placed on treatment with Primaxin and vancomycin. His culture is now positive for pseudomonas. We have converted him to oral levofloxacin, and pharmacy has recommended a 14 day course. (2) Suprapubic catheter Status: Chronic (3) BRIDGETT on CPAP Status: Chronic Assessment & Plan: He is on chronic treatment with CPAP. (4) Chronic pain syndrome Status: Chronic Assessment & Plan: He is on chronic treatment with a Fentanyl patch. (5) Thrombocytopenia Status: Chronic Assessment & Plan: His platelet count has been chronically low. (6) Depression, endogenous Status: Chronic Assessment & Plan: He is on chronic treatment with Zoloft. Heart Failure Ejection Fraction %: 58 RVSP (mmHg): 40 NYHA Class: I Is Patient on PETE Inhibitor?: Yes Is Patient on Beta Candida?: No Admission Weight: 236 Exam Sepsis Risk: No Definite Risk LEXI MAYO DO Apr 30, 2017 10:41
[2017-04-30 12:17] VITALS: BP 137/63
[2017-04-30 14:27] VITALS: BP 138/64
[2017-04-30] MEDS: POTASSIUM CHL 20 MEQ TABCR PO SCH (17:13)
[2017-04-30 19:47] VITALS: BP 147/59
[2017-04-30] MEDS: QUETIAPINE FUM PO SCH (21:02)
[2017-04-30] MEDS: [UNRECOGNIZED DRUG - OTHER] PO SCH (21:02)
[2017-04-30] MEDS: ACETAMINOPHEN 325 MG TAB PO PRN (21:05)
[2017-05-01] MEDS: fentaNYL CITR 100 MCG/2 ML AMP IVP PRN ×2 (01:18→08:13)
[2017-05-01 03:45] VITALS: BP 160/89
[2017-05-01 07:31] VITALS: BP 142/69
[2017-05-01] MEDS: POTASSIUM CHL 20 MEQ TABCR PO SCH (07:36)
[2017-05-01] MEDS: ACETAMINOPHEN 325 MG TAB PO PRN (07:37)
[2017-05-01] MEDS: SERTRALINE HCL 50 MG TAB PO SCH (08:13)
[2017-05-01] MEDS: FOLIC ACID 1 MG TAB PO SCH (08:13)
[2017-05-01] MEDS ORDERED: INFLUENZA VIRUS VAC 0.5 ML SYR IM ONLY ONE (09:00)
[2017-05-01] MEDS ORDERED: APAP/HYDROCODONE 325/10 TAB PO PRN (09:50)
[2017-05-01] MEDS ORDERED: FENTANYL 100 MCG TD SCH (10:00)
[2017-05-01] MEDS ORDERED: LEVOFLOXACIN 500 MG TAB PO SCH (10:00)
[2017-05-01] MEDS ORDERED: FENTANYL PATCH REMOVAL TP SCH (11:30)
[2017-05-01] MEDS ORDERED: POTASSIUM CHL 10% SF LIQ 20MEQ PO ONE (12:00)
[2017-05-01] MEDS ORDERED: POTASSIUM CHL PWDR 20 MEQ PKT PO ONE (12:00)
[2017-05-01] MEDS ORDERED: LEVO-85 PO (12:34)
[2017-05-01] MEDS: PROMETHAZINE 25 MG/ML 1 ML AMP IVP PRN (12:39)
--- NOTE | 2017-05-01 12:45 | Hospitalist Depart ---
Discharge Summary Reason for Hosp/Final Diag: (1) UTI (urinary tract infection) Status: Acute Hospital Course & Plan: He presented with worsening back and nausea. This was considered a complicated infection secondary to a suprapubic cath. He was initially placed on treatment with Primaxin and vancomycin. His culture was positive for pseudomonas. We have converted him to oral levofloxacin, and pharmacy has recommended a 14 day course. He is currently afebrile and has a normal BP/P. (2) Hypokalemia Status: Acute Hospital Course & Plan: Secondary to outpatient Lasix. He is to hold it and take oral potassium. BMP in about a week. (3) Suprapubic catheter Status: Chronic Hospital Course & Plan: Routine care and follow up with Urology at the next available. (4) Pancytopenia Status: Chronic Hospital Course & Plan: Long standing since at least 2007. Recheck CBC in about a week. He should have follow up with a Dispatch Lead. (5) BRIDGETT on CPAP Status: Chronic Hospital Course & Plan: He is on chronic treatment with CPAP. (6) Chronic pain syndrome Status: Chronic Hospital Course & Plan: He is on chronic treatment with a Fentanyl patch and Lortab. (7) Depression, endogenous Status: Chronic Hospital Course & Plan: He is on chronic treatment with Zoloft. Departure Weight (Pounds): 240 Weight (Ounces): 5.0 Result Diagram: 04/30/17 0533 05/01/17 05 Item Value Date Time White Blood Count 5.1 k/uL 04/28/17 0000 White Blood Count 2.4 k/uL L 04/29/17 0533 White Blood Count 2.4 k/uL L 04/30/17 0533 Hemoglobin 13.8 g/dL L 04/28/17 0000 Hemoglobin 10.6 g/dL L 04/29/17 0533 Hemoglobin 11.6 g/dL L 04/30/17 0533 Platelet Count 119 K/uL L 04/28/17 0000 Platelet Count 69 K/uL L 04/29/17 0533 Platelet Count 73 K/uL L 04/30/17 0533 Neutrophils (%) (Auto) 88.3 % H 04/28/17 0000 Neutrophils (%) (Auto) 66.4 % 04/29/17 0533 Neutrophils (%) (Auto) 58.1 % 04/30/17 0533 Sodium Level 142 mmol/L 04/28/17 0000 Sodium Level 135 mmol/L L 04/29/17 0533 Sodium Level 137 mmol/L 04/30/17 0533 Sodium Level 136 mmol/L L 05/01/17 0525 Potassium Level 3.2 mmol/L L 05/01/17 0525 Potassium Level 3.2 mmol/L L 04/30/17 0533 Potassium Level 3.4 mmol/L L 04/29/17 0533 Potassium Level 3.4 mmol/L L 04/28/17 0000 Blood Urea Nitrogen 12 mg/dl 04/28/17 0000 Blood Urea Nitrogen 10 mg/dl 04/29/17 0533 Blood Urea Nitrogen 8 mg/dl L 04/30/17 0533 Blood Urea Nitrogen 7 mg/dl L 05/01/17 0525 Creatinine 0.80 mg/dl 05/01/17 0525 Creatinine 0.90 mg/dl 04/30/17 0533 Creatinine 0.80 mg/dl 04/29/17 0533 Creatinine 1.00 mg/dl 04/28/17 0000 Random Glucose 111 mg/dl H 05/01/17 0525 Random Glucose 88 mg/dl 04/30/17 0533 Random Glucose 85 mg/dl 04/29/17 0533 Random Glucose 132 mg/dl H 04/28/17 0000 Troponin I < 0.012 ng/ml 04/28/17 0000 Lipase 91 U/L 04/28/17 0000 Urine Nitrite Positive H 04/28/17 1442 Urine Leukocyte Esterase Large H 04/28/17 1442 Urine RBC 423 /HPF 04/28/17 1442 Urine WBC 136 /HPF 04/28/17 1442 Urine Bacteria Few /HPF 04/28/17 1442 Urine Mucus Few /HPF 04/28/17 1442 Urine Blood Large 04/28/17 1442 Clostridium Difficile Toxin A & B Negative 04/30/17 1000 Clostridium difficile Antigen Positive 04/30/17 1000 Influenza Virus Type A (PCR) Negative 04/28/17 0000 Influenza Virus Type B (PCR) Negative 04/28/17 0000 Blood cultures without growth from 04/28 x2 PATIENT: TERI PANDYA ACCT: [id number] LOC: MED U : [id number] AGE/SX: 76/M ROOM: [facility] REG : 04/28/[address]: BERNABE STAPLETON MD : 1940 BED: 270 DIS : STATUS: ADM IN TLOC: SPEC #: [id number] BEENA: 04/28/17 STATUS: COMP REQ #: [id number] RECD: 04/28/[address] [facility] [address]: ESTEPHANIA WING APRN SOURCE: ADRIANO ENTR: 04/28/[address] [facility] [address]: DANIELA CRUZ MD SPDESC: CHRIS BENTON MD ORDERED: CULT URINE Procedure Result Verified URINE CULTURE Final 04/30/17-934 Organism 1 PSEUDOMONAS AERUGINOSA >100,000 COL/ML PSE AERUGI M.I.C. RX --------- --- CEFTAZIDIME 16 I CEFEPIME 8 S CIPROFLOXACIN 0.5 S GENTAMICIN <=1 S IMIPENEM 2 S LEVOFLOXACIN 2 S PIPERACILLIN/TAZOBACTAM 32 S TOBRAMYCIN <=1 S Imaging 04/28/17 Abd/Pelvis CT - 1. No acute intra-abdominal abnormality identified. 2. Colostomy is in place without sequelae. Sigmoid diverticulosis without radiographic indication diverticulitis. 3. Other chronic stable findings as above. EKG Vent. Rate : 088 BPM Atrial Rate : 088 BPM P-R Int : 124 ms QRS Dur : 122 ms QT Int : 404 ms P-R-T Axes : 048 -71 095 degrees QTc Int : 488 ms Electronic ventricular pacemaker When compared with ECG of 27-SEP-2015 10:15, Vent. rate has increased BY 15 BPM Confirmed by DORYS GUY ([id number]) on 04/29/2017 2:22:16 PM Condition: Improved Discharge: Home Discharge Instructions Home Meds Active Scripts Levofloxacin 500 Mg Tab (LEVAQUIN 500 MG TAB) 500 Mg Tablet, 500 MG PO QAM, #11 Prov:NILTON GILLILAND MD 05/01/17 Fentanyl 100 Mcg Patch (FENTANYL 100 MCG PATCH) 1 Each Patch.td72, 1 EACH TD Q48H, #15 PATCH.72H refill on or after 06/20/2017 Prov:DANIELA CRUZ MD 04/28/17 Acetaminophen/Hydrocodone (HYDROCODON-ACETAMINOPHN 10-325) 1 Each Tab, 1 TAB PO BID Y for prn, #60 TAB 0 Refills Refill on or after 06/20/2017 Prov:DANIELA CRUZ MD 04/28/17 Quetiapine Fumarate (QUETIAPINE FUMARATE) 50 Mg Tablet, 50 MG PO QHS, #90 TAB 1 Refill Prov:DANIELA CRUZ MD 04/04/17 Potassium Chloride (KLOR-CON 10) 10 Meq Tablet.er, 10 MEQ PO QDAY, #30 TAB 6 Refills Prov:DANIELA CRUZ MD 07/04/16 Sertraline Hcl (SERTRALINE HCL) 100 Mg Tablet, 1.5 TAB PO DAILY, #135 TAB 1 Refill Prov:DANIELA CRUZ MD 03/11/16 Reported Medications Folic Acid (FOLIC ACID) 1 Mg Tablet, 1 MG PO QDAY, TAB 12/07/15 Cyanocobalamin (Vitamin B-12) (B-12) 1,000 Mcg Tablet.er, 1000 MCG PO QDAY 12/07/15 Discontinued Reported Medications Furosemide (LASIX) 40 Mg Tablet, 1 TAB PO QDAY, TAB 04/28/17 Cephalexin Monohydrate (CEPHALEXIN) 250 Mg Cap, #90 10/07/14 Fluticasone/Vilanterol 100/25 Mcg/Inh (BREO ELLIPTA 100/25 MCG) 1 Each Aer.pow.ba, 1 INH INH QDAY, INH 10/14/16 Discontinued Scripts Fentanyl 100 Mcg Patch (FENTANYL 100 MCG PATCH) 1 Each Patch.td72, 1 EACH TD Q48H, #15 PATCH.72H Prov:DANIELA CRUZ MD 04/22/17 Acetaminophen/Hydrocodone (HYDROCODON-ACETAMINOPHN 10-325) 1 Each Tab, 1 TAB PO BID Y for prn, #60 TAB 0 Refills Refill on or after 03/25/18 Prov:DANIELA CRUZ MD 04/22/17 Diet: Regular Activity: As Tolerated Special Instructions: BMP/CBC in 5-7 days to follow potassium and low wbc/platelet count and anemia Follow up with PCP in 1-2 weeks to follow up symptoms and discuss follow up with a Dispatch Lead for the low blood counts. Copies to: DANIELA CRUZ MD Venous Thromboembolism Antithrombotics Is Pt On Any Antithrombotics?: No Heart Failure Ejection Fraction %: 58 RVSP (mmHg): 40 NYHA Class: I Is Patient on PETE Inhibitor?: Yes Is Patient on Beta Candida?: No Admission Weight: 236 NILTON GILLILAND MD May 01, 2017 12:45
--- NOTE | 2017-05-01 13:10 | Medical Nutrition Therapy ---
Nutrition Anthropometrics Height (Inches): 71.00 Height (Calculated Centimeters: 180.917668 Weight (Pounds): 240 Weight (Calculated Kilograms): 109.004 BMI Calculated: 32.07 Keshawn Nutrition Score: Adequate Keshawn Nutrition Risk Score: 20 Dietary Referral Nutrition Risk Factors: Nutrition Risk Comment: Physical Findings Physical Appearance: Obese BMI 30-39 Skin Appearance Skin Appearance: Edema Edema Location Modifier: Both Edema Location: Leg Type of Edema: Degree of Edema: 1+ Gastrointestinal Symptoms GI Symtoms: Nausea Tube Present: Bowel Sounds: Recent Bowel Pattern: Stool Characteristics: Brown, Loose Nutritional Diagnosis Nutritional Risk Acuity 2: V/D > 3 Days, Pr Appetite > 3d Nutritional Risk Acuity 3: Nausea, GERD Past Medical History: prostate cancer, colostomy, BRIDGETT, neuropathy, hypercholesterolemia, CHF, COPD, GERD, CAD, depression, HTN, pacemaker Nutritional Acuity: 2-Moderate Nutrition Diagnosis: Inadequate Food Intake Nutrition Etiology: Physiological Causes Nutrition Problem/Etiology/Sym: Inadequate food inake r/t UTI, N/V, and fever AEB reports of anorexia over 1-2 weeks Energy Requirement: 1920 ([place] Adj) Protein Requirement: 87 (0.8 g/kg) Fluid Requirement: 2180 (20 ml/kg) Diet Type: Diet as Tolerated LATRELL/REG Nutrition Intervention: Cont diet as ordered, Encourage intake Nutrition Monitoring & Eval RD Patient Assessment Time: [address] Assessment Type: RD Assessment Patient Nutrition Acuity: 2-Moderate Follow Up Date: May 03, 2017 Nutritional Comment: 04/29 Pt admitted for UTI. Pt reports N/V, fever, and anorexia over the last 1-2 weeks. Pt has a colostomy. Pt is on clear liquids, no intake documentation available. Notable labs include low H/H, Na 135, K+ 3.4, Ca 7.6, total pro 5.4, and alb 2.8. Pt has non-pitting edema in both legs. Will offer ensure clear as pt has most likely had suboptimal nutrient intake over the last week. Will continue to monitor intakes, labs, etc. 04/30 Pt upgraded to LATRELL with 80% intake of reg portion at one meal. Edema in both legs is now pitting 1+. N/V has resolved. Will continue to encourage intake and monitor labs, edema, etc. ALICE DE LA CRUZ Apr 30, 2017 10:46
[2017-05-03] MEDS ORDERED: PATCH REMOVAL 1 EA TP SCH (10:00)
== END 2017-05-01 14:15 | disposition home or self-care (01) | DRG 699 ==
LOC: ER 14:21 → MED 17:19
PROVIDERS: ADMIT Internal Medicine; ATTEND Internal Medicine
DX: T83.511A Infection and inflammatory reaction due to indwelling urethral catheter, initial encounter (principal); D61.818 Other pancytopenia; F33.2 Major depressive disorder, recurrent severe without psychotic features; G47.33 Obstructive sleep apnea (adult) (pediatric); G89.4 Chronic pain syndrome; E87.6 Hypokalemia; B96.5 Pseudomonas (aeruginosa) (mallei) (pseudomallei) as the cause of diseases classified elsewhere; I11.0 Hypertensive heart disease with heart failure; E78.5 Hyperlipidemia, unspecified; J44.9 Chronic obstructive pulmonary disease, unspecified; K21.9 Gastro-esophageal reflux disease without esophagitis; N39.0 Urinary tract infection, site not specified; G62.9 Polyneuropathy, unspecified; I50.9 Heart failure, unspecified; T50.1X5A Adverse effect of loop [high-ceiling] diuretics, initial encounter; I25.10 Atherosclerotic heart disease of native coronary artery without angina pectoris; Y84.6 Urinary catheterization as the cause of abnormal reaction of the patient, or of later complication, without mention of misadventure at the time of the procedure; Z88.8 Allergy status to other drugs, medicaments and biological substances; Z87.891 Personal history of nicotine dependence; Z93.3 Colostomy status; Z85.46 Personal history of malignant neoplasm of prostate; Z95.0 Presence of cardiac pacemaker
CPT/HCPCS: 36415; 71250; 74176; 81001; 82040; 82150; 82247; 82310; 82374; 82435; 82565; 82947; 83690; 84075; 84132; 84155; 84295; 84450; 84460; 84484; 84520; 85025; 87040; 87077; 87088; 87186; 87324; 87449; 87502; 93005; 96361; 96365; 96375; 97161; 97165; 99285; J0696; J0743; J2405; J2550; J3010; J3370; J7030; J7050

== ENCOUNTER → 2017-04-28 | Outpatient (CLI) | payer MEDICARE, OTHER ==
[2014-10-04 14:53] VITALS: BMI 31.2
[~2017-04-28] MED LIST changes: +FERR-53 PO; -FERR325T14 PO
--- NOTE | 2017-04-28 15:13 | RADIOLOGY IMAGING REPORT ---
FACILITY: [facility] - [place] PATIENT NAME: Cal Arboleda : 1940 MR: [id number] V: [id number] EXAM DATE: ORDERING PHYSICIAN: JACQUELYN REYES TECHNOLOGIST: Location: [facility] Patient: Cal Arboleda : 1940 Visit/Account:[id number] Date of Sevice: 04/28/2017 CT chest without contrast Indication: Shortness of breath. Comparison: None available Technique: Axial CT images are obtained through the chest without administration of IV contrast. One of the following dose optimization techniques was utilized in the performance of this exam: Autom ated exposure control; adjustment of the mA and/or kV according to the patient's size; or use of an i terative reconstruction technique. Specific details can be referenced in the facility's radiology C T exam operational policy.Reformatted coronal and sagittal images were reviewed. Findings: Heart is normal size without pericardial effusion. Left subclavian pacemakers in place. The aorta bañuelos s show mild atherosclerotic calcific changes without aneurysm. Pulmonary arteries are grossly normal. There is no mediastinal hematoma and there is no pathologic mediastinal adenopathy seen. The left lung shows at least 4 nodules. Left upper lobe on image #21 measuring 4 mm, subcentimeter pl eural-based calcific nodule on image #24, left lateral lower lobe on image #79 measuring 7 mm and lef t lower lobe laterally on image #82 measuring 5 mm. The right middle lobe does show a 3 mm nodule on image #68. No other discrete lung nodules. No focal consolidation, pleural effusion, pneumothorax or focal interstitial opacities. Airways are clear. Scarring in the left lower lobe. Bony structures show no acute fractures or discrete lesions. Mild degenerative changes spine. Chest w all shows no enlarged axillary lymph nodes or masses. The right adrenal gland does show 1.3 cm nodule [place] of 9 consistent with benign adenoma. This is unchanged from the CT of the abdomen pelvis on 03/28/2006. Upper abdomen is otherwise unremarkable . IMPRESSION: 1. No acute cardiopulmonary disease. 2. Bilateral lung nodules. These are too small characterize and could be postinflammatory as there is one calcified nodule representing granuloma. The 2 left lower lobe nodules appear similar to the CT abdomen pelvis on 03/28/2006. As the upper lobe nodules were not previously visualized or imaged. Sug gest follow-up per Fleischner guidelines described below. 3. Stable right adrenal gland adenoma. FLEISCHNER SOCIETY FOLLOW-UP GUIDELINES FOR NEWLY DETECTED INCIDENTAL NODULES IN PERSONS 35 YEARS OF AGE OR OLDER. *THESE RECOMMENDATIONS DO NOT APPLY TO LUNG CANCER SCREENING, PATIENTS WITH IMMUNOSUPPRESSION , OR PA TIENTS WITH KNOWN PRIMARY MALIGNANCY. MULTIPLE SOLID NODULES If largest nodule size is less than 6 mm: Low risk patient - no follow up needed High risk patient - Optional CT at 12 months. If largest nodule size is 6-8 mm: Low risk patient - follow up CT at 3-6 months, then consider CT at 18-24 months if no change. High risk patient - follow up CT at 3-6 months, then CT at 18-24 months if no change. If largest nodule size is greater than 8 mm: Low risk patient - follow up CT at 3-6 months, then consider CT at 18-24 months High risk patient - follow up CT at 3-6 months, then at 18-24 months LOW RISK PATIENT: Minimal or absent history of tobacco use and of other known risk factors. HIGH RISK PATIENT: Tobacco use, family history of lung cancer, upper pulmonary lobe location of nodul e, presence of emphysema, pulmonary fibrosis, older age. Gema H, Tiffany DP, Frankie JM, et al. Guidelines for Management of Incidental Pulmonary Nodules Dete cted on CT Images: From the Fleischner Society 2017. Radiology. Report Dictated By: Tarun Rivas at 04/28/2017 3:01 PM Report E-Signed By: Tarun Rivas at 04/28/2017 3:09 PM WSN:[id number]
== END ==
LOC: CT 02:08
PROVIDERS: ATTEND Internal Medicine
DX: R91.8 Other nonspecific abnormal finding of lung field (principal); D35.01 Benign neoplasm of right adrenal gland
CPT/HCPCS: 71250

== ENCOUNTER → 2017-04-28 | Outpatient (CLI) | payer MEDICARE, OTHER ==
[2014-10-04 14:53] VITALS: BMI 31.2
[2017-04-28 12:51] LABS: PLATELET COUNT, AUTOMATED 123 K/uL (150-450)
== END ==
LOC: LAB 12:33
PROVIDERS: ATTEND Internal Medicine
DX: J44.9 Chronic obstructive pulmonary disease, unspecified (principal); R53.83 Other fatigue; R10.9 Unspecified abdominal pain; I10 Essential (primary) hypertension
CPT/HCPCS: 36415; 82040; 82150; 82247; 82310; 82374; 82435; 82565; 82947; 83690; 84075; 84132; 84155; 84295; 84450; 84460; 84520; 85025

== ENCOUNTER → 2017-05-13 | Outpatient (CLI) | payer MEDICARE, OTHER ==
[2017-04-29 08:08] VITALS: BMI 32.1
[2017-05-13 13:08] LABS: PLATELET COUNT, AUTOMATED 130 K/uL (150-450)
== END ==
LOC: LAB 12:55
PROVIDERS: ATTEND Internal Medicine
DX: D61.818 Other pancytopenia (principal); E87.6 Hypokalemia
CPT/HCPCS: 36415; 82310; 82374; 82435; 82565; 82947; 84132; 84295; 84520; 85025

== ENCOUNTER → 2017-07-09 | Outpatient (CLI) | payer MEDICARE, OTHER ==
[2017-04-29 08:08] VITALS: BMI 32.1
[~2017-07-09] MED LIST changes: +AMLO-96 PO
[2017-07-09 16:49] LABS: PLATELET COUNT, AUTOMATED 108 K/uL (150-450)
== END ==
LOC: LAB 16:17
PROVIDERS: ATTEND Internal Medicine
DX: N39.0 Urinary tract infection, site not specified (principal); E87.6 Hypokalemia; I10 Essential (primary) hypertension
CPT/HCPCS: 36415; 82040; 82247; 82310; 82374; 82435; 82565; 82947; 84075; 84132; 84155; 84295; 84450; 84460; 84520; 85025

== ENCOUNTER → 2017-07-10 | Outpatient (CLI) | payer MEDICARE, OTHER ==
[2017-04-29 08:08] VITALS: BMI 32.1
== END ==
LOC: LAB 10:48
PROVIDERS: ATTEND Internal Medicine
DX: N39.0 Urinary tract infection, site not specified (principal); E87.6 Hypokalemia; I10 Essential (primary) hypertension; R82.79 Other abnormal findings on microbiological examination of urine
CPT/HCPCS: 81001; 87088

== ENCOUNTER → 2017-07-17 | Outpatient (CLI) | payer MEDICARE, OTHER ==
[2017-04-29 08:08] VITALS: BMI 32.1
== END ==
LOC: LAB 10:56
PROVIDERS: ATTEND Internal Medicine
DX: N39.0 Urinary tract infection, site not specified (principal)

== ENCOUNTER → 2017-08-04 | Outpatient (CLI) | payer MEDICARE, OTHER ==
[2017-04-29 08:08] VITALS: BMI 32.1
== END ==
LOC: LAB 10:22
PROVIDERS: ATTEND Urology
DX: N30.00 Acute cystitis without hematuria (principal)
CPT/HCPCS: 81001

== ENCOUNTER → 2017-08-25 | Outpatient (CLI) | payer MEDICARE, OTHER ==
[2017-04-29 08:08] VITALS: BMI 32.1
[~2017-08-25] MED LIST changes: -OXYC-375 PO; +OXYC1TAB78 PO
== END ==
LOC: LAB 11:52
PROVIDERS: ATTEND Internal Medicine
DX: G89.4 Chronic pain syndrome (principal); Z98.890 Other specified postprocedural states; Z93.59 Other cystostomy status; Z92.89 Personal history of other medical treatment; B96.89 Other specified bacterial agents as the cause of diseases classified elsewhere
CPT/HCPCS: 81001; 87088

== ENCOUNTER → 2017-08-25 | Outpatient (CLI) | payer MEDICARE, OTHER ==
[2017-04-29 08:08] VITALS: BMI 32.1
== END ==
LOC: LAB 08-13 09:07
PROVIDERS: ATTEND Internal Medicine Cardiovascular Disease
DX: I10 Essential (primary) hypertension (principal); I42.0 Dilated cardiomyopathy; I44.7 Left bundle-branch block, unspecified; R07.9 Chest pain, unspecified
CPT/HCPCS: 36415; 82310; 82374; 82435; 82565; 82947; 83880; 84132; 84295; 84520

== ENCOUNTER → 2017-09-12 | Outpatient (CLI) | payer MEDICARE, OTHER ==
[2017-04-29 08:08] VITALS: BMI 32.1
[~2017-09-12] MED LIST changes: +AMPI500V14 PO; +NS 0.9% 20 ML SDV 40 ML ONE
--- NOTE | 2017-09-12 13:44 | RADIOLOGY IMAGING REPORT ---
FACILITY: [facility] PATIENT NAME: Cal Arboleda : 1940 MR: [id number] V: [id number] EXAM DATE: ORDERING PHYSICIAN: JACQUELYN REYES TECHNOLOGIST: [facility] [place] Patient: Cal Arboleda : 1940 Visit/Account:[id number] Date of Sevice: 09/12/2017 CHEST W/O CONTRAST HISTORY: Worsening shortness of breath with COPD. Former smoker. TECHNIQUE: CT chest without intravenous contrast. One of the following dose optimization techniques was utilized in the performance of this exam: Autom ated exposure control; adjustment of the mA and/or kV according to the patient's size; or use of an i terative reconstruction technique. Specific details can be referenced in the facility's radiology C T exam operational policy. CONTRAST: None. COMPARISON: April 28, 2017. CT abdomen/pelvis dated March 28, 2006 FINDINGS: Heart/vessels: Left chest wall pacer device. Mild/moderate calcification within the and LAD and lef t circumflex. Mild calcification within the left circumflex artery. Prominence of the main pulmonar y artery measuring up to 3.5 cm which is nonspecific however can be seen in the setting of pulmonary arterial hypertension. There is mild left atrial enlargement measuring up to 5.3 center meter's. Ot herwise negative. Mediastinum: Negative. Lymph nodes: Negative. Lungs/pleura: Background of mild paraseptal and centrilobular emphysematous change. Scattered areas of mild pleural pleural/parenchymal scarring. Nodular scarring within the lingula, unchanged. Mild bronchiectasis with bronchial wall thickening and a few scattered airway secretions, likely related to chronic smoking-related airways disease. Punctate 1-2 mm nodule within the right upper lobe (image 129 of series 4), unchanged 3-4 mm nodule w ithin the right middle lobe (image 248), unchanged small intrafissural lymph nodes along the left jaleel or fissure. 2 pleural-based nodules within the left lower lobe base measuring up to 6 x 5 mm (image 260 of series 4), unchanged. Linn shaped 6 x 5 mm nodule within the more central left lower lobe (image 238), unchanged. These left lower lobe nodules are unchanged since CT abdomen/pelvis from 20 06 and are benign given chronicity. Few scattered small calcified granulomas. Visualized upper abdomen: Small right adrenal nodule is unchanged. Probable minimal adenomatous thi ckening of the left adrenal gland. Mild fatty replacement of the visualized pancreas. Postsurgical changes within the colon visualized in the left upper quadrant. Otherwise negative. Bones/soft tissues: Mild/moderate bilateral gynecomastia. Otherwise negative. IMPRESSION: 1. No acute findings. 2. Background of mild centrilobular and paraseptal emphysematous change. 3. Mild bronchiectasis with bronchial wall thickening and a few scattered airway secretions, likely related to chronic smoking-related airways disease. 4. Few scattered micronodules, the largest of which are within the left lung base, unchanged since 2 006 and benign given chronicity. Additional nodules measure up to 4 mm and are unchanged since at le ast April 28, 2017, favored benign. 5. Additional incidental/chronic sinus, as above. Report Dictated By: Vinny Lyon MD at 09/12/2017 1:26 PM Report E-Signed By: Vinny Lyon MD at 09/12/2017 1:38 PM WSN:[id number]
== END ==
LOC: CT 10:54
PROVIDERS: ATTEND Internal Medicine
DX: R91.8 Other nonspecific abnormal finding of lung field (principal)
CPT/HCPCS: 71250; J7050

== ENCOUNTER → 2017-09-29 | Outpatient (REF) | payer MEDICARE, OTHER ==
[2017-04-29 08:08] VITALS: BMI 32.1
[~2017-09-29] MED LIST changes: -NS 0.9% 20 ML SDV 40 ML ONE
== END ==
LOC: ZZSENDIN 09:48
PROVIDERS: ATTEND Urology
DX: N39.0 Urinary tract infection, site not specified (principal); R82.79 Other abnormal findings on microbiological examination of urine
CPT/HCPCS: 81001; 87088

== ENCOUNTER → 2017-10-31 | Outpatient (CLI) | payer MEDICARE, OTHER ==
[2017-04-29 08:08] VITALS: BMI 32.1
[~2017-10-31] MED LIST changes: +DULO30CA35 PO; +DULO60CA56 PO; +MELO-207 PO; +SPIR25TA80 PO
--- NOTE | 2017-10-31 11:51 | RADIOLOGY IMAGING REPORT ---
FACILITY: [facility] PATIENT NAME: Cal Arboleda : 1940 MR: [id number] V: [id number] EXAM DATE: ORDERING PHYSICIAN: DANIELA CRUZ TECHNOLOGIST: Location: [facility] [place] Patient: Cal Arboleda : 1940 Visit/Account:[id number] Date of Sevice: 10/31/2017 2 views thoracic spine INDICATION: Thoracic pain. COMPARISON: CT examination from September 12, 2017 FINDINGS: Lateral view demonstrates the mild multilevel spondylotic changes in the mid and lower thoracic spine . Mild anterior wedging of the mid and lower thoracic vertebra is stable as compared to the prior CT examination likely on a degenerative basis. No evidence of compression fracture. Upper thoracic sp ine are without acute abnormality. Mild dextroscoliotic curvature mid thoracic spine. IMPRESSION: 1. Mild dextroscoliosis with mild multilevel spondylotic changes. No radiographic evidence of acute fracture Further evaluation if needed could be performed with an MRI Report Dictated By: Aakash Dunn MD at 10/31/2017 11:38 AM Report E-Signed By: Aakash Dunn MD at 10/31/2017 11:48 AM WSN:[id number]
== END ==
LOC: RAD 10:55
PROVIDERS: ATTEND Internal Medicine
DX: M47.894 Other spondylosis, thoracic region (principal); M41.84 Other forms of scoliosis, thoracic region
CPT/HCPCS: 72070

== ENCOUNTER → 2017-12-30 | Outpatient (CLI) | payer MEDICARE, OTHER ==
[2017-04-29 08:08] VITALS: BMI 32.1
[~2017-12-30] MED LIST changes: +AMLO-111 PO; -AMLO-96 PO; -RAMI2.5C42 PO; +RAMI2.5C43 PO
--- NOTE | 2017-12-30 10:55 | RADIOLOGY IMAGING REPORT ---
FACILITY: [facility] PATIENT NAME: Cal Arboleda : 1940 MR: [id number] V: [id number] EXAM DATE: ORDERING PHYSICIAN: TELLY MORTON TECHNOLOGIST: Location: [facility] Patient: Cal Arboleda : 1940 Visit/Account:[id number] Date of Sevice: 12/30/2017 EXAMINATION: CT lumbar spine without IV contrast HISTORY: Low back pain. COMPARISON: Lumbar spine radiographs from 02/05/2011. TECHNIQUE: Axial images were obtained through the lumbar spine without IV contrast administration. C oronal and sagittal reformatted images were obtained from the axial source data. One of the following dose optimization techniques was utilized in the performance of this exam: Autom ated exposure control; adjustment of the mA and/or kV according to the patient's size; or use of an i terative reconstruction technique. Specific details can be referenced in the facility's radiology C T exam operational policy. FINDINGS: Alignment: Normal. Vertebral bodies: Negative. Posterior elements: Mild facet hypertrophy in the lower lumbar spine. Hardware: None. Disc spaces: Mild disc space narrowing with mild disc bulges at L3-4 and L4-5. Severe disc space norman rowing and endplate sclerosis with bony spurring and a mild disc bulge eccentric to the left at L5-S1 . There is at least mild right and moderate left foraminal stenosis at L5-S1, without other central canal or foraminal stenosis visualized by CT. Soft tissues: Negative. Visualized retroperitoneal/abdominal structures: Moderate atherosclerotic calcifications. IMPRESSION: Degenerative disc disease and facet arthropathy of the lumbar spine is worst at L5-S1 where there is at least mild right and moderate left foraminal stenosis. No obvious spinal stenosis by CT. Report Dictated By: Nichole Caro MD at 12/30/2017 10:41 AM Report E-Signed By: Nichole Caro MD at 12/30/2017 10:51 AM WSN:[id number]
== END ==
LOC: CT 12-26 13:44
PROVIDERS: ATTEND Nurse Practitioner
DX: M51.36 Other intervertebral disc degeneration, lumbar region (principal); M48.061 Spinal stenosis, lumbar region without neurogenic claudication
CPT/HCPCS: 72131

== ENCOUNTER 2018-02-10 09:23 | Outpatient (RCR) | payer MEDICARE, OTHER ==
[2015-03-21 10:55] VITALS: BP 127/81
[2017-04-29 08:08] VITALS: BMI 32.1
[~2018-02-10 09:23] MED LIST changes: +FENT1PAT TD; +FENT1PAT40 TD; +PREG50CA48 PO; +TIZA-128 PO
[2018-02-10 09:41] LABS: PLATELET COUNT, AUTOMATED 121 K/uL (150-450)
[2018-02-25] MEDS ORDERED: PREG75CA60 PO (08:46)
[2018-02-25] MEDS ORDERED: FENT1PAT40 TD (08:46)
[2018-02-25] MEDS ORDERED: HYDR-393 PO (08:46)
== END 2018-03-04 10:58 | disposition home or self-care (01) ==
LOC: SPU 09:23
PROVIDERS: ATTEND Internal Medicine
DX: D64.9 Anemia, unspecified (principal); I42.9 Cardiomyopathy, unspecified; J44.9 Chronic obstructive pulmonary disease, unspecified; Z85.46 Personal history of malignant neoplasm of prostate; C61 Malignant neoplasm of prostate
CPT/HCPCS: 36415; 82040; 82247; 82310; 82374; 82435; 82565; 82947; 84075; 84132; 84153; 84155; 84295; 84450; 84460; 84520; 85025

== ENCOUNTER 2018-02-17 13:59 | Outpatient (RCR) | payer MEDICARE, OTHER ==
[2017-04-29 08:08] VITALS: BMI 32.1
--- NOTE | 2018-02-17 22:00 | ONCOLOGY FOLLOW UP NOTE ---
EVENT DATE: February 17, 2018 REASON FOR VISIT Patient is here to review updated labs. Known history of prostate carcinoma. Known history of complex pelvic pain syndrome. PERTINENT MEDICAL HISTORY 1. Pollok 7, poorly differentiated adenocarcinoma of the prostate. Patient underwent prostate brachytherapy 06/05/10. 2. History of complex pelvic pain syndrome, status post physical therapy, injection nerve block, and narcotic analgesics, on slow taper at this time. 3. Idiopathic cardiomyopathy. 4. Oxygen-dependent COPD. 5. History of diverting colostomy and suprapubic catheter placement. INTERVAL HISTORY Mr. Arboleda was seen for a followup appointment today. From the prostate cancer standpoint, he is doing remarkably well. PSA is undetectable as of 02/10/18. Denies any new or persistent bone pain. His metabolic panel was normal as well as his CBC with the exception of a slightly low hemoglobin 11.6, which is stable for this patient. The patient informs me that since his last appointment here, he has been seen in the Pain Clinic in [place]. It sounds like they attempted a pudendal nerve block. He had partial relief, and then an alcohol nerve block was performed. Again, he only achieved partial pain relief, unfortunately. He was willing to do a slow taper on the fentanyl patch, and presently, he is on 75 mcg plus 12 mcg, which is down from 100 mcg last year q.48 hours. He has his good days and his bad days. Suprapubic catheter is functioning reasonably well. He does have this changed out every two weeks. His activity level is somewhat limited due to deconditioning. He states that he was started recently on Lyrica, but he is uncertain whether the medication is helping or not at this time. Patient sees Dr. Moreira monthly for pain medication renewals. He has been a very reliable patient to date. Past Medical History Neurologic: Reports hx of: other neurologic history (chronic pelvic pain. fentanyl for years. did not like morphine in 2010. ) Cardiovascular: Reports hx of: CHF (Hx viral myocarditis in 1999. nl cor. angio in 2007. Dr. Briscoe. EF 49%2008) edema hyperlipidemia Respiratory: Reports hx of: COPD (pulm. rehab in 2013. peak flow 270 in 08/18. inhaler use review. 08/18. ) pneumonia (hostpialized in 2007. ) sleep apnea (Dx in 2002. Has cpap and oxygen at [address] Esqueda. ) Gastrointestinal: Reports hx of: GERD other GI history (COLOSTOMY placed 03/19 because) Genitourinary: Reports hx of: other urinary history (indwelling urinary catheter since repair of rectovesicle fistula in 03/19. ) Integumentary: Reports hx of: other integumentary hx (dermatitis on elbows and has used triamcinolone cream. ) Psychiatric: Reports hx of: depression (Tx since myocarditis in 1999. seroquel added in 2008 that helps for sleep. ) other psychiatric history (INSOMNIA. trazodone not helpful and more dreams with ambien. ) Endocrine: Reports hx of: other endocrine history (Hx elevated glucose and on metformin for couple years until lost wt. ) Hematology/oncology (M): Denies hx of: prostate cancer Events: REPORTS HX OF: Other events (abstracted 04/21. Annual exam in early 08/18. ) Past Surgical History Cardiovascular: Reports hx of: pacemaker (2001, 2009) Gastrointestinal: Reports hx of: other GI surgery (COLOSTOMY 2012, RECTAL SURGERY 03/19 to repair colovesical fistula. ) Genitourinary - Male: Reports hx of: other surgery (supra pubic catheter) SOCIAL HISTORY Patient is . One son has fibromyalgia. His daughter is doing a clerkship for a nurse practitioner position in [place]. REVIEW OF SYSTEMS Notable for fatigue. Respiratory status is stable. Denies any active chest pain. Colostomy is functioning adequately. Catheter is functioning reasonably well, though occasional leakage. No return of any dermatitis in the skin or groin area. PHYSICAL EXAMINATION GENERAL: A 77-year-old male in fair general clinical health. He is alert and fully cooperative to examination. He is a reliable historian. VITAL SIGNS: Weight 239. BP 154/91, pulse 91, oxygen 94% on 3L. LUNGS: Clear bilaterally. HEART: Sounds regular. LYMPHATICS: No lymphadenopathy detected. ABDOMEN: Mildly obese. No gross organomegaly. Colostomy location was inspected with no skin irritation. EXTREMITIES: Trace edema bilaterally. Otherwise unchanged from prior exams. IMPRESSION AND PLAN This is a 77-year-old gentleman with remote history of locally aggressive prostate carcinoma who responded to the prostate brachytherapy in 2010 with an undetectable PSA at this time. He does have complex pelvic pain syndrome and has gone through appropriate therapeutic measures to date. He will follow up with the Pain Clinic in a month and continue on the slow taper if possible over the course of a year. All questions were answered to his satisfaction over a 40-minute appointment today. I will see him again in a year with an updated PSA, CBC, and CMP. RHETT
[2018-02-25] MEDS ORDERED: HYDR-393 PO (08:46)
[2018-02-25] MEDS ORDERED: FENT1PAT40 TD (08:46)
[2018-02-25] MEDS ORDERED: PREG75CA60 PO (08:46)
== END 2018-03-04 12:43 | disposition home or self-care (01) ==
LOC: RAON 13:59
PROVIDERS: ATTEND Radiology Radiation Oncology
DX: C61 Malignant neoplasm of prostate (principal); Z92.3 Personal history of irradiation
CPT/HCPCS: 99202

== ENCOUNTER → 2018-05-05 | Outpatient (CLI) | payer MEDICARE, OTHER ==
[2017-04-29 08:08] VITALS: BMI 32.1
[~2018-05-05] MED LIST changes: -AMLO-111 PO; +AMLO-125 PO; +METH1GPT PO; +MIRA50TA PO; +PREG75CA60 PO
--- NOTE | 2018-05-05 10:31 | EKG ---
FACILITY: [facility] [place] PATIENT NAME: TERI PANDYA : [id number] MR: [id number] V: [id number] EXAM DATE: ORDERING PHYSICIAN: STEPHANIE VASQUEZ TECHNOLOGIST: Test Reason : Blood Pressure : / mmHG Vent. Rate : 081 BPM Atrial Rate : 081 BPM P-R Int : 164 ms QRS Dur : 094 ms QT Int : 400 ms P-R-T Axes : 009 -69 091 degrees QTc Int : 464 ms Electronic ventricular pacemaker When compared with ECG of 28-APR-2017 14:14, Vent. rate has decreased BY 7 BPM Confirmed by Vinicio Nuñez ([id number]) on 05/05/2018 10:37:25 PM Referred By: Confirmed By:Vinicio Snider
== END ==
LOC: RESP 09:28
PROVIDERS: ATTEND Nurse Practitioner Family
DX: Z95.0 Presence of cardiac pacemaker (principal); R55 Syncope and collapse; Z91.81 History of falling; W18.00XA Striking against unspecified object with subsequent fall, initial encounter
CPT/HCPCS: 93005

== ENCOUNTER → 2018-05-08 | Outpatient (CLI) | payer MEDICARE, OTHER ==
[2017-04-29 08:08] VITALS: BMI 32.1
--- NOTE | 2018-05-08 11:55 | RADIOLOGY IMAGING REPORT ---
FACILITY: [facility] [place] PATIENT NAME: Cal Arboleda : 1940 MR: [id number] V: [id number] EXAM DATE: ORDERING PHYSICIAN: STEPHANIE VASQUEZ TECHNOLOGIST: Location: [facility] [place] Patient: Cal Arboleda : 1940 Visit/Account:[id number] Date of Sevice: 05/08/[address] scan without contrast HISTORY: Falls, syncope, dizziness COMPARISONS: None TECHNIQUE: Non-contrast head CT was performed with sagittal and coronal reformations. One of the following dose optimization techniques was utilized in the performance of this exam: autom ated exposure control; adjustment of the mA and/or kV according to patient size; or use of iterative reconstruction technique. Specific details can be referenced in the facility's radiology CT exam ope rational policy. FINDINGS: There is no intracranial hemorrhage, hydrocephalus or midline shift. The basal cisterns, martinez-white differentiation, and convexity sulci are maintained. Normal orbital soft tissues. Mild periventricu lar white matter hypoattenuation. Chronic right frontal CSF space expansion versus chronic 5 mm subd ural hygroma. Clear mastoid air cells, small left maxillary sinus mucous retention cyst and normal osseous structur es. IMPRESSION: No acute intracranial abnormality. Mild chronic small vessel ischemic change. 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 Report Dictated By: Vinny Gonsalez MD at 05/08/2018 11:45 AM Report E-Signed By: Vinny Gonsalez MD at 05/08/2018 11:50 AM WSN:[id number]
== END ==
LOC: CT 01:15
PROVIDERS: ATTEND Nurse Practitioner Family
DX: I67.82 Cerebral ischemia (principal); D18.1 Lymphangioma, any site
CPT/HCPCS: 70450

== ENCOUNTER → 2018-05-12 | Outpatient (CLI) | payer MEDICARE, OTHER ==
[2017-04-29 08:08] VITALS: BMI 32.1
--- NOTE | 2018-05-12 10:41 | RADIOLOGY IMAGING REPORT ---
FACILITY: [facility] PATIENT NAME: Cal Arboleda : 1940 MR: [id number] V: [id number] EXAM DATE: ORDERING PHYSICIAN: STEPHANIE VASQUEZ TECHNOLOGIST: Location: [facility] Patient: Cal Arboleda : 1940 Visit/Account:[id number] Date of Sevice: 05/12/2018 Exam type: FOOT 3 VIEWS RIGHT History: Pain in right ankle and joints of right foot Comparison: Right ankle performed today. Findings: There postsurgical changes from open reduction internal fixation of the distal right tibia and fibula . There is severe joint space narrowing involving the right first metatarsal phalangeal joint with i rregularity of the adjacent articular surfaces. There are mild to moderate degenerative changes of t he DIP joints throughout the right foot IMPRESSION: 1. Severe joint space narrowing involving the right first metatarsophalangeal joint with irregularit y of the adjacent articular surfaces consistent with degenerative arthritis Mild to moderate joint changes throughout the DIP joints of the right foot Postsurgical changes of the right ankle Report Dictated By: Joan Willams MD at 05/12/2018 10:34 AM Report E-Signed By: Joan Willams MD at 05/12/2018 10:37 AM WSN:[email or web address]
--- NOTE | 2018-05-12 10:43 | RADIOLOGY IMAGING REPORT ---
FACILITY: [facility] PATIENT NAME: Cal Arboleda : 1940 MR: [id number] V: [id number] EXAM DATE: ORDERING PHYSICIAN: STEPHANIE VASQUEZ TECHNOLOGIST: Location: [facility] Patient: Cal Arboleda : 1940 Visit/Account:[id number] Date of Sevice: 05/12/2018 Exam type: ANKLE 3 VIEW MIN RIGHT History: Pain in right ankle and right foot Comparison: September 30, 2014. Findings: There postsurgical changes from open reduction internal fixation of the distal diaphysis metaphysis a nd epiphysis of the right fibula. Two orthopedic screws transfix the medial malleolus. The all frac tures have been reduced in good anatomic alignment. The ankle mortise appears intact. There is mild soft tissue swelling about the right ankle. No acute fracture-dislocation is seen IMPRESSION: 1. Postsurgical changes from open reduction internal fixation of the distal right fibula and tibia t he old fractures reduced in good anatomic alignment Report Dictated By: Joan Willams MD at 05/12/2018 10:37 AM Report E-Signed By: Joan iWllams MD at 05/12/2018 10:39 AM WSN:[email or web address]
== END ==
LOC: RAD 09:29
PROVIDERS: ATTEND Nurse Practitioner Family
DX: M96.671 Fracture of tibia or fibula following insertion of orthopedic implant, joint prosthesis, or bone plate, right leg (principal)

== ENCOUNTER 2018-07-02 13:00 | Outpatient (RCR) | payer MEDICARE, OTHER ==
[2017-04-29 08:08] VITALS: BMI 32.1
--- NOTE | 2018-05-14 18:52 | PT INITIAL EVALUATION ---
MEDICAL DIAGNOSIS: chronic low back pain TREATMENT DIAGNOSIS: same DATE OF ONSET: 05/14/17 SUBJECTIVE: Cal Arboleda presents to physical therapy with complaints of low back pain that started approximately one year. He reports that the pain is worse with bending, sitting, and better with standing and lying on L side. He reports that he had his "nerves burned" a while back and reports that it helped for about 3 weeks and then the pain returned. Furthermore, he reports that he would like to correct the low back pain conservatively versus surgical intervention.. . Pain location is L1-L5 central and to the R and L. and described as constant and achy. Pain scale is 5 on a ten point pain scale. REHAB PROBLEM LIST: Increased Pain Decreased ROM Decreased Strength Decreased Endurance Decreased Balance Decreased Function Decreased ADL's Decreased Gait PREVIOUS MEDICAL HISTORY: See EMR OCCUPATION: Retired OBJECTIVE: Posture: He demonstrates B rounded shoulders, increased thoracic kyphosis, decreased lumbar lordosis, and forward head. ROM: Trunk AROM: flexion: moderate restriction with pain. extension: minimal restriction with pain. R sidebending: major restriction with pain. L sidebending: major restriction with pain. Palpation: TTP: L1-L5 central and to the R and L Special Tests: Repeated extension: increased pain and peripheralized pain following the movement. flexion: increased pain and peripheralized pain following the movement. L sidegliding: increased pain and centralized pain and better following the movement. Mobility: Independent Gait: He demonstrated antalgic pain due to past fractures ASSESSMENT: Cal will benefit from skilled physical therapy with potential directional preference targeted today, which improves his prognosis to return to prior level of function as we his address his impairments. Short Term Goals 3 weeks: Pt will demonstrate directional preference with his low back pain to improve prognosis for recovery to improve function and QOL. 5 weeks: Pt will demonstrate centralized LBP to improve function and QOL. 8 weeks: If he demonstrates directional preference and centralized LBP, then he will demonstrate abolished LBP and return to prior level of function. Patient's Goals decrease pain and improve function PLAN: Patient to be seen for Manual Therapy/STM/MET Strengthening/condition Ice/Heat Range of Motion Spinal Stabilization Work Hardening/Cond Stretching Iontophoresis Neuromuscular Re-ed Closed Chain Program Electrical Stim Posture/Body mechanics Gait Trg/Balance Trg Home Exercise Program Therapeutic Activities 2x/Week for 2 Months If you have any questions, comments, or concerns about this report or plan, please contact me at . Thank you, Sheldon Blanc, PT, DPT RHETT
[~2018-07-02 13:00] MED LIST changes: +GENT40VI IJ; -VANC125C3 PO; +VANC125C4 PO
--- NOTE | 2018-07-02 16:24 | PT PLAN OF CARE ---
Physician: Dolores Balderas NP Patient is being seen: 2x/week Therapist: Sheldon Blanc, PT, DPT Medical Diagnosis: chronic low back pain Treatment Diagnosis: same Date of Onset: 05/14/17 Date of Initial Evaluation: 05/14/18 Date patient was last seen: 07/02/18 Number of treatments: 10 Number of cancellations/No shows: 0 INTERVENTIONS: Manual Therapy/STM/MET Strengthening/condition Ice/Heat Range of Motion Spinal Stabilization Work Hardening/Cond Stretching Iontophoresis Neuromuscular Re-ed Closed Chain Program Electrical Stim Posture/Body mechanics Gait Trg/Balance Trg Home Exercise Program Therapeutic Activities GOALS: 3 weeks: Pt will demonstrate directional preference with his low back pain to improve prognosis for recovery to improve function and QOL. 5 weeks: Pt will demonstrate centralized LBP to improve function and QOL. 8 weeks: If he demonstrates directional preference and centralized LBP, then he will demonstrate abolished LBP and return to prior level of function. PATIENT'S GOAL: decrease pain and improve function Status of Patient's Goals: Progressing well Patient Compliance: Good Prognosis: Good Reasons for continuing therapy: This is a progress note for Cal Arboleda. Cal reports that his back is doing well and does not really feel any pain in his low back region. He reports that he feels like he is functioning around his house better. However, he reports that the rest of his body feels terrible. He reports that he has intense/extreme catheter pain around his penis that comes and goes throughout the day and is worse with certain positions. He demonstrates significant improvements with his trunk AROM in all directions with normalized end feels. Furthermore, he has demonstrated increased core and B LE strength. We will continue to ensure that his pain stays away, continue to increase strength, and educate how to prevent a low pain back reoccurrence and then we will discharge from PT. Posture: He demonstrates B rounded shoulders, increased thoracic kyphosis, decreased lumbar lordosis, and forward head. ROM: Trunk AROM: flexion: NIL restriction with no pain. extension: NIL restriction with pain. R sidebending: NIL restriction with no pain. L sidebending: NIL restriction with no pain. Strength: Palpation: TTP: No longer TTP. Special Tests: Repeated extension: increased pain and peripheralized pain following the movement. flexion: increased pain and peripheralized pain following the movement. L sidegliding: increased pain and centralized pain and better following the movement. Mobility: Independent Physician: Dolores Balderas NP Signature DATE If you have any questions, please contact me at [phone]. Thank you, Sheldon Blanc, PT, DPT MTDD
[2018-07-13] MEDS ORDERED: METH1GPT PO (13:30)
[2018-07-21] MEDS ORDERED: HYOS-50 SL (09:38)
== END 2018-07-02 18:00 | disposition home or self-care (01) ==
LOC: PT 13:00
PROVIDERS: ATTEND Nurse Practitioner Family
DX: M54.5 Low back pain (principal)
CPT/HCPCS: 97162

== ENCOUNTER → 2018-07-08 | Outpatient (CLI) | payer MEDICARE, OTHER ==
[2017-04-29 08:08] VITALS: BMI 32.1
--- NOTE | 2018-07-08 16:42 | RADIOLOGY IMAGING REPORT ---
FACILITY: [facility] PATIENT NAME: Cal Arboleda : 1940 MR: [id number] V: [id number] EXAM DATE: ORDERING PHYSICIAN: JACQUELYN REYES TECHNOLOGIST: Location: [facility] Patient: Cal Arboleda : 1940 Visit/Account:[id number] Date of Sevice: 07/08/2018 CT CHEST W/O CONTRAST History: Pulmonary nodules TECHNIQUE: Contiguous axial images were performed through the chest to the level of the adrenal gla nds. No IV contrast was administered. Coronal and sagittal reformatting was also performed.Dose Lower ing Technique One of the following dose optimization techniques was utilized in the performance of this exam: Autom ated exposure control; adjustment of the mA and/or kV according to the patient's size; or use of an i terative reconstruction technique. Specific details can be referenced in the facility's radiology C T exam operational policy. COMPARISON STUDIES: September 12, 2018. Lungs / Pleura: 4 mm nodule in the posterior left upper lobe abutting the major fissure appears unc hanged and is best seen on image 18 of series 3. 4 mm pleural-based calcified nodule lateral aspect of the left upper lobe is also unchanged best seen on image 21 7 mm noncalcified nodule lateral aspect the left lower lobe appears unchanged and is best seen on jolene ge 79 5 mm noncalcified nodule lateral aspect left lower lobe also appears unchanged best seen on image 82 3 to 4 mm nodule lateral aspect right middle lobe appears unchanged and is best seen on image 64 There is a thick band of airspace consolidation with bronchial thickening in the inferior lingula lowell t appears similar to the prior study. There is thick linear stranding in the medial right middle lob e that also appears unchanged . There are multiple small nodules measuring up to 3 mm in the posterior sulcus the left lower lobe wit h adjacent linear stranding which were not evident on the prior study. There is also mild peribronch ial thickening in the right middle lobe which has increased in the interim Mediastinum/nodes: negative. Heart and vessels: Implanted pacemaker with leads again seen. Period there are mild coronary artery calcifications Musculoskeletal / Body wall: Scoliosis of the thoracic spine with spondylotic changes Upper abdomen: Small right adrenal nodule appears unchanged IMPRESSION: Previously noted pulmonary nodules appear unchanged. There is however a new collection of micronodules measuring up to 3 mm in the posterior sulcus of the left lower lobe. Mild peribronchial thickening the right middle lobe has increased in the interim There is a thick band of airspace consolidation with bronchial thickening in the inferior lingula lowell t appears similar to the prior study. This may represent scarring although continued surveillance re commended to exclude a slow-growing adenocarcinoma Report Dictated By: Joan Willams MD at 07/08/2018 3:39 PM Report E-Signed By: Joan Willams MD at 07/08/2018 4:37 PM WSN:[email or web address]
== END ==
LOC: CT 01:01
PROVIDERS: ATTEND Internal Medicine
DX: R91.8 Other nonspecific abnormal finding of lung field (principal)
CPT/HCPCS: 71250

== ENCOUNTER → 2018-07-31 | Outpatient (CLI) | payer MEDICARE, OTHER ==
[2017-04-29 08:08] VITALS: BMI 32.1
[~2018-07-31] MED LIST changes: +HYOS-50 SL
--- NOTE | 2018-08-03 11:38 | RT HOLTER TEST ---
FACILITY: [facility] - [place] [place] PATIENT NAME: TERI PANDYA : [id number] MR: [id number] V: [id number] EXAM DATE: ORDERING PHYSICIAN: Fabian SHAIKH TECHNOLOGIST: Hook-up date: 2018-07-31 09:18:00 Duration: 24:00:00 Test Indications: TACHYCARDIA Medications: 456960 QRS complexes 387 Ventricular ectopics which represent <1 % of total QRS comp. 1568 Supraventricular ectopics which represent 1 % of total QRS comp. * Paced QRS complexes which represent % of total QRS comp. VENTRICULAR ECTOPY 369 Isolated 0 Bigeminal Cycles 9 Couplets 0 Runs 0 Beats in Runs * Beats LONGEST at * BPM at :: -- * Beats FASTEST at * BPM at :: -- SUPRAVENTRICULAR ECTOPY 1566 Isolated 1 Couplets 0 Runs 0 Beats in Runs * Beats LONGEST at * BPM at :: -- * Beats FASTEST at * BPM at :: -- HEART RATES 58 MIN at 00:48:14 2018-08-01 76 AVG 132 MAX at 16:21:25 2018-07-31 LONGEST RR 1.128 secs at 06:27:19 2018-08-01 S-T LEVELS Channel 1 -12.800 mm MIN at 09:18:00 2018-07-31 -12.800 mm MAX at 09:18:00 2018-07-31 Channel 2 -12.800 mm MIN at 09:18:00 2018-07-31 -12.800 mm MAX at 09:18:00 2018-07-31 Channel 3 -12.800 mm MIN at 09:18:00 2018-07-31 -12.800 mm MAX at 09:18:00 2018-07-31 There were no reported symptoms. He was predominantly in a sinus rhythm with a wide QRS. There were occasional ventricular ectopy and supraventricular ectopy. The average heart rate was 76 beats per minute. Confirmed by NILTON GILLILAND ([id number]) on 08/03/2018 11:38:27 AM Referred By: Overread By: NILTON GILLILAND
== END ==
LOC: RESP 03:13
PROVIDERS: ATTEND Internal Medicine Cardiovascular Disease
DX: R00.0 Tachycardia, unspecified (principal)
CPT/HCPCS: 93225

== ENCOUNTER 2018-08-11 18:09 | Emergency (ER) | payer MEDICARE, OTHER ==
[2017-04-29 08:08] VITALS: BMI 32.1
[2018-08-11] MEDS ORDERED: NS(*) 0.9% 1000 ML BAG 1,000 ML IV ONE (18:14)
[2018-08-11] MEDS ORDERED: ONDANSETRON 4 MG/2 ML VIAL IVP ONE (18:15)
[2018-08-11] MEDS ORDERED: ACETAMINOPHEN 325 MG TAB PO ONE (18:15)
--- NOTE | 2018-08-11 18:28 | ER Report ---
History and Physical Time Seen By MD: 18:28 Hx. of Stated Complaint: PATIENT STATES THAT AROUND 1600 THE PATIENTS SUPERPUBIC CATHATER CAME OUT; CALLED PATIENT FRIEND WHO IS AN RN TO COME PUT IT BACK IN BUT THEY WERE NOT ABLE TO HPI/ROS CHIEF COMPLAINT: Needs placement of suprapubic catheter HISTORY OF PRESENT ILLNESS: 77-year-old male patient presents to emergency room with complaint of needing a replacement of his suprapubic catheter. Patient states that he had his catheter fall out this afternoon when he was coming in from getting the mail. Patient states that he felt that his pants are wet and we locked the catheter had fallen out. Patient states that he had a friend who is a nurse who attempted to replace the catheter was unsuccessful. Patient came in to get the catheter replaced. Patient denies any fevers, chills, nausea, vomiting or diarrhea. Patient has not taken any medication for this. Allergies: Coded Allergies: meperidine (Verified Allergy, Severe, MAKES HIM VIOLENTLY ILL, DROPS HIS BP, 09/27/15) albuterol (Verified Adverse Reaction, Mild, MAKES FACE NUMB, FLUSH, 09/27/15) Home Meds Active Scripts Hyoscyamine Sulfate (LEVSIN-SL) 0.125 Mg Tab.subl, 0.125 MG SL Q6H PRN for SPASMS for 7 Days, #30 CAP 3 Refills Prov:AUTUMN COVARRUBIAS MD 07/21/18 Methenamine Hippurate (HIPREX) 1 Gm Tab, 1 GM PO DAILY for urinary tract infection for 30 Days, #30 TAB 4 Refills Take one tablet daily with a glass of orange juice Prov:AUTUMN COVARRUBIAS MD 07/13/18 Duloxetine Hcl (CYMBALTA) 60 Mg Capsule.dr, 60 MG PO QDAY, #90 CAP 1 Refill Prov:DANIELA CRUZ MD 06/30/18 Meloxicam (MELOXICAM) 15 Mg Tablet, 15 MG PO QDAY PRN for pain, #90 TAB 1 Refill Prov:DANIELA CRUZ MD 06/10/18 Fentanyl (Fentanyl) 1 Each Patch.td72, 12 MCG TD Q48H, #15 PATCH Prov:DANIELA CRUZ MD 03/24/18 Fentanyl (Fentanyl) 1 Each Patch.td72, 50 MCG TD Q72H, #15 PATCH Prov:DANIELA CRUZ MD 03/24/18 Acetaminophen/Hydrocodone (HYDROCODON-ACETAMINOPHN 10-325) 1 Each Tab, 1 TAB PO BID PRN for prn, #60 TAB Prov:DANIELA CRUZ MD 03/24/18 Mirabegron (MYRBETRIQ) 50 Mg Tab.er.24h, 50 MG PO DAILY for bladder spasm for 30 Days, #30 CAP 3 Refills Prov:AUTUMN COVARRUBIAS MD 03/17/18 Pregabalin (LYRICA) 75 Mg Capsule, 75 MG PO BID, #60 CAPSULE 3 Refills Prov:DANIELA CRUZ MD 02/25/18 Tizanidine Hcl (TIZANIDINE HCL) 4 Mg Tablet, 4 MG PO BID PRN for pain, spasm, #60 TAB 3 Refills Prov:DANIELA CRUZ MD 01/26/18 Quetiapine Fumarate (QUETIAPINE FUMARATE) 50 Mg Tablet, 50 MG PO QHS, #90 TAB 1 Refill Prov:DANIELA CRUZ MD 01/20/18 Potassium Chloride (KLOR-CON 10) 10 Meq Tablet.er, 10 MEQ PO QDAY, #30 TAB 6 Refills Prov:DANIELA CRUZ MD 07/04/16 Reported Medications Amlodipine Besylate (AMLODIPINE BESYLATE) 5 Mg Tablet, 1 TAB PO QDAY, TAB 07/09/17 Folic Acid (FOLIC ACID) 1 Mg Tablet, 1 MG PO QDAY, TAB 12/07/15 Cyanocobalamin (Vitamin B-12) (B-12) 1,000 Mcg Tablet.er, 1000 MCG PO QDAY 12/07/15 Past Medical/Surgical History Patient has a past medical history of viral myocarditis, congestive heart f ailure, hyperlipidemia, sleep apnea, emphysema, pneumonia, COPD, incontinence of urine, diarrhea, leg fracture, ankle fracture, back pain, diabetes, C. difficile, anxiety, suicide attempt, cancer, depression. Patient has a surgical history of tonsillectomy, surgery to bilateral legs, suprapubic catheter, colostomy, pacemaker. Patient has a family medical history of diabetes, CAD, cancer. Reviewed Nurses Notes: Yes Hx Smoking: Yes Smoking Status: Former Smoker Exposure to Second Hand Smoke?: No Hx Substance Use Disorder: No Hx Alcohol Use: No Constitutional Vital Sign - Last 24 Hours 08/11/18 08/11/18 08/11/18 08/11/18 18:22 18:23 18:30 18:39 Temp 97.5 Pulse 74 76 Resp 19 B/P (MAP) 165/76 (105) 165/76 156/75 (102) Pulse Ox 94 95 O2 Delivery Nasal Cannula 08/11/18 08/11/18 08/11/18 08/11/18 19:00 19:09 19:30 19:39 Pulse 76 76 B/P (MAP) 156/68 (97) 162/72 (102) Pulse Ox 95 95 Physical Exam General Appearance: The patient is alert, has no immediate need for airway protection and no current signs of toxicity. Respiratory: Chest is non tender, lungs are clear to auscultation. Cardiac: regular rate and rhythm Gastrointestinal: Abdomen is soft and non tender, no masses, bowel sounds normal. Musculoskeletal: Neck: Neck is supple and non tender. Extremities have full range of motion and are non tender. Skin: No rashes or lesions. Bleeding a small amount from suprapubic catheter. DIFFERENTIAL DIAGNOSIS: After history and physical exam differential diagnosis was considered for need for catheter placement Medical Decision Making ED Course/Re-evaluation ED Course Patient was admitted to examine, history of physical were obtained. Differential diagnoses were considered. On examination lungs are clear, heart is regular, abdomen soft nontender. Patient did have a stress amount of bleeding from the suprapubic catheter site on arrival. The nurse did attempt to replace catheter, was unsuccessful. I was able to get in there and after several minutes was able to place the catheter without any difficulties. Patient did have a small amount of bleeding at that time. We went ahead and watched him for 30 minutes after that to make sure that he was straining. Patient was having urine drainage. We will go ahead and discharge him home at this time. Patient states he does feel safe a better. Patient is to follow-up with his urologist in the next week. He is to have his catheter placed in 2 weeks as per schedule. Patient verbalized understanding and agreement with plan. Decision to Disposition Date: August 11, 2018 Decision to Disposition Time: 19:35 Depart Departure Latest Vital Signs Vital Signs Date Time Temp Pulse Resp B/P (MAP) Pulse Ox O2 Delivery O2 Flow Rate FiO2 08/11/18 19:39 76 95 5/7/19 19:30 162/72 (102) 08/11/18 18:23 97.5 19 Nasal Cannula Impression: Primary Impression: Suprapubic catheter Additional Impression: Urinary catheter change required Condition: Improved Disposition: HOME OR SELF-CARE Referrals: STEPHANIE VASQUEZ BILL DISTRIBUTOR-BC, ONC (PCP) Patient Instructions: Suprapubic Cystostomy and Catheter Insertion (ED) Additional Instructions: Increase fluid intake. Get plenty of rest. You may change the catheter as needed in 2 weeks. Return to the ER with any concerns. Follow up with Dr. Covarrubias with any concerns. Problem Qualifiers ROBIN BAINS August 11, 2018 18:28
[2018-08-11 19:30] VITALS: BP 162/72
== END 2018-08-11 19:48 | disposition home or self-care (01) ==
LOC: ER 18:38
DX: T83.028A Displacement of other urinary catheter, initial encounter (principal)
CPT/HCPCS: 99283; A4338; A4344

== ENCOUNTER → 2018-08-17 | Outpatient (CLI) | payer MEDICARE, OTHER ==
[2017-04-29 08:08] VITALS: BMI 32.1
== END ==
LOC: LAB 08:45
PROVIDERS: ATTEND Nurse Practitioner Family
DX: R53.83 Other fatigue (principal); D51.0 Vitamin B12 deficiency anemia due to intrinsic factor deficiency; I10 Essential (primary) hypertension; M54.9 Dorsalgia, unspecified; G47.00 Insomnia, unspecified; F41.8 Other specified anxiety disorders; Z87.19 Personal history of other diseases of the digestive system; R10.2 Pelvic and perineal pain
CPT/HCPCS: 82607; 84443

== ENCOUNTER → 2018-08-17 | Outpatient (CLI) | payer MEDICARE, OTHER ==
[2017-04-29 08:08] VITALS: BMI 32.1
== END ==
LOC: LAB 08:43
PROVIDERS: ATTEND Urology
DX: Z01.818 Encounter for other preprocedural examination (principal)
CPT/HCPCS: 36415; 82565

== ENCOUNTER → 2018-08-18 | Outpatient (CLI) | payer MEDICARE, OTHER ==
[2017-04-29 08:08] VITALS: BMI 32.1
[~2018-08-18] MED LIST changes: +IOPAMIDOL 76% 100 ML INFUS BTL 100 ML ONE
--- NOTE | 2018-08-18 11:23 | RADIOLOGY IMAGING REPORT ---
FACILITY: [facility] PATIENT NAME: Cal Arboleda : 1940 MR: [id number] V: [id number] EXAM DATE: ORDERING PHYSICIAN: AUTUMN COVARRUBIAS TECHNOLOGIST: Location: Patient: Cal Arboleda : 1940 Visit/Account:[id number] Date of Sevice: 08/18/2018 CT ABDOMEN PELVIS W/ CON HISTORY: bladder spasms, chronic indwelling suprapubic catheter TECHNIQUE: Following administration of IV contrast contiguous axial images acquired through the abdom en/pelvis. Coronal and sagittal reformatting also performed.Dose Lowering Technique One of the following dose optimization techniques was utilized in the performance of this exam: Autom ated exposure control; adjustment of the mA and/or kV according to the patient's size; or use of an i terative reconstruction technique. Specific details can be referenced in the facility's radiology C T exam operational policy. CONTRAST: 75 mL Isovue-370 COMPARISON: April 28, 2017 FINDINGS: Visualized lung bases: There is stable nodules in the lung bases in addition to scarring in the left lower lobe Hepatobiliary: There appear to be several tiny hyperdensities within the gallbladder which may repre sent tiny stones. There is no evidence of biliary ductal dilatation Spleen: Mild splenomegaly is unchanged. Adrenals: Negative. Pancreas: Negative. Kidneys ureters or bladder: Kidneys appear grossly unremarkable. There is a suprapubic bladder rubin ter in place. There is moderate thickening of the bladder wall although may in part be related to un derdistention with urine Genitalia: There are brachytherapy seeds in the prostate GI: Again noted is an ostomy in anterior left mid abdomen. There surgical anastomoses seen in the d ecompressed sigmoid colon and at the splenic flexure Vessels/spaces/nodes: There is moderate atherosclerotic calcination occasions throughout the abdomin al aorta and branch vessels. Bones/soft tissues: No aggressive appearing bone lesions are seen Additional findings: None pertinent. IMPRESSION: Several tiny hyperdensities are seen within the gallbladder which may represent tiny stones. There i s no evidence of biliary ductal dilatation. Mild spinal megaly unchanged Suprapubic bladder catheter is in place. There is moderate bladder wall thickening which may part be related to underdistention with urine Ostomy in the anterior left mid abdomen.. No evidence of bowel obstruction Additional chronic findings as described Report Dictated By: Joan Willams MD at 08/18/2018 10:13 AM Report E-Signed By: Joan Willams MD at 08/18/2018 11:19 AM WSN:[email or web address]
== END ==
LOC: CT 08-13 01:45
PROVIDERS: ATTEND Urology
DX: N39.0 Urinary tract infection, site not specified (principal); N32.89 Other specified disorders of bladder; Z93.59 Other cystostomy status
CPT/HCPCS: 74177; Q9967

== ENCOUNTER 2018-10-04 13:35 | Emergency (ER) | payer MEDICARE, OTHER ==
[2017-04-29 08:08] VITALS: Wt 109.3 kg
--- NOTE | 2018-10-04 13:32 | ER Report ---
History and Physical Time Seen By MD: 13:29 HPI/ROS CHIEF COMPLAINT: Headache, neck pain HISTORY OF PRESENT ILLNESS: Patient is a 77-year-old male here with complaints of headache, C-spine tenderness after a fall on Friday. Patient reports that he was walking discharge when he fell and struck the apex of this head with questionable loss of consciousness. Patient denies being on anticoagulants. He does report some mild confusion but is otherwise neurovascularly intact at time of evaluation moving all extremities spontaneously. There is a healing abrasion on the apex of the scalp REVIEW OF SYSTEMS: Constitutional: No fever, no chills. Eyes: No discharge. ENT: No sore throat. Cardiovascular: No chest pain, no palpitations. Respiratory: No cough, no shortness of breath. Gastrointestinal: No abdominal pain, no vomiting. Genitourinary: No hematuria. Musculoskeletal: No back pain. Skin: Abrasion on the apex of the scalp Neurological: + headache. Allergies: Coded Allergies: meperidine (Verified Allergy, Severe, MAKES HIM VIOLENTLY ILL, DROPS HIS BP, 09/27/15) albuterol (Verified Adverse Reaction, Mild, MAKES FACE NUMB, FLUSH, 09/27/15) Home Meds Active Scripts Hyoscyamine Sulfate (LEVSIN-SL) 0.125 Mg Tab.subl, 0.125 MG SL Q6H PRN for SPASMS for 7 Days, #30 CAP 3 Refills Prov:AUTUMN COVARRUBIAS MD 07/21/18 Methenamine Hippurate (HIPREX) 1 Gm Tab, 1 GM PO DAILY for urinary tract infection for 30 Days, #30 TAB 4 Refills Take one tablet daily with a glass of orange juice Prov:AUTUMN COVARRUBIAS MD 07/13/18 Duloxetine Hcl (CYMBALTA) 60 Mg Capsule.dr, 60 MG PO QDAY, #90 CAP 1 Refill Prov:DANIELA CRUZ MD 06/30/18 Meloxicam (MELOXICAM) 15 Mg Tablet, 15 MG PO QDAY PRN for pain, #90 TAB 1 Refill Prov:DANIELA CRUZ MD 06/10/18 Fentanyl (Fentanyl) 1 Each Patch.td72, 12 MCG TD Q48H, #15 PATCH Prov:DANIELA CRUZ MD 03/24/18 Fentanyl (Fentanyl) 1 Each Patch.td72, 50 MCG TD Q72H, #15 PATCH Prov:DANIELA CRUZ MD 03/24/18 Acetaminophen/Hydrocodone (HYDROCODON-ACETAMINOPHN 10-325) 1 Each Tab, 1 TAB PO BID PRN for prn, #60 TAB Prov:DANIELA CRUZ MD 03/24/18 Mirabegron (MYRBETRIQ) 50 Mg Tab.er.24h, 50 MG PO DAILY for bladder spasm for 30 Days, #30 CAP 3 Refills Prov:AUTUMN COVARRUBIAS MD 03/17/18 Pregabalin (LYRICA) 75 Mg Capsule, 75 MG PO BID, #60 CAPSULE 3 Refills Prov:DANIELA CRUZ MD 02/25/18 Tizanidine Hcl (TIZANIDINE HCL) 4 Mg Tablet, 4 MG PO BID PRN for pain, spasm, #60 TAB 3 Refills Prov:DANIELA CRUZ MD 01/26/18 Quetiapine Fumarate (QUETIAPINE FUMARATE) 50 Mg Tablet, 50 MG PO QHS, #90 TAB 1 Refill Prov:DANIELA CRUZ MD 01/20/18 Potassium Chloride (KLOR-CON 10) 10 Meq Tablet.er, 10 MEQ PO QDAY, #30 TAB 6 Re fills Prov:DANIELA CRUZ MD 07/04/16 Reported Medications Amlodipine Besylate (AMLODIPINE BESYLATE) 5 Mg Tablet, 1 TAB PO QDAY, TAB 07/09/17 Folic Acid (FOLIC ACID) 1 Mg Tablet, 1 MG PO QDAY, TAB 12/07/15 Cyanocobalamin (Vitamin B-12) (B-12) 1,000 Mcg Tablet.er, 1000 MCG PO QDAY 12/07/15 Hx Smoking: Yes Smoking Status: Former Smoker Exposure to Second Hand Smoke?: No Hx Substance Use Disorder: No Hx Alcohol Use: No Constitutional Vital Sign - Last 24 Hours 10/04/18 10/04/18 10/04/18 10/04/18 13:35 13:37 13:38 14:00 Temp 101.0 Pulse ??? 106 Resp 20 B/P (MAP) 177/96 (123) 177/96 154/89 (110) Pulse Ox 94 O2 Delivery Nasal Cannula 10/04/18 10/04/18 10/04/18 10/04/18 14:05 14:15 14:30 14:35 Pulse 101 91 B/P (MAP) 154/73 (100) 160/77 (104) Pulse Ox 93 90 10/04/18 10/04/18 10/04/18 10/04/18 14:45 15:00 15:05 15:15 Pulse 94 B/P (MAP) 154/71 (98) 134/81 (98) 142/67 (92) Pulse Ox 96 10/04/18 15:30 B/P (MAP) 145/77 (99) Physical Exam General Appearance: The patient is alert, has no immediate need for airway protection and no signs of toxicity. Uncomfortable appearing Eyes: Pupils equal and round no pallor or injection. ENT, Mouth: Mucous membranes are moist. No hemotympanum Respiratory: There are no retractions, lungs are clear to auscultation. Cardiovascular: Regular rate and rhythm. Gastrointestinal: Abdomen is soft and non tender, no masses, bowel sounds normal. Neurological: Moving all extremities spontaneously, mildly confused at time of evaluation Skin: Small abrasion to the apex of the scalp Musculoskeletal: Neck is supple non tender. Extremities are nontender, nonswollen and have full range of motion. DIFFERENTIAL DIAGNOSIS: After history and physical exam differential diagnosis was considered for concussion, abrasion, contusion, intracranial bleed, postconcussive syndrome Medical Decision Making Data Points Result Diagram: 10/04/18 1305 10/04/18 1305 Laboratory Hematology Test 10/04/18 13:05 10/04/18 13:45 10/04/18 13:50 10/04/18 14:47 Red Blood Count 3.67 M/uL (4.00-5.60) Mean Corpuscular Volume 91.7 fL (80.0-96.0) Mean Corpuscular Hemoglobin 31.5 pg (26.0-33.0) Mean Corpuscular Hemoglobin Concent 34.4 g/dL (32.0-36.0) Red Cell Distribution Width 15.1 % (11.5-14.5) Mean Platelet Volume 7.2 fL (7.2-11.1) Neutrophils (%) (Auto) 76.3 % (39.4-72.5) Lymphocytes (%) (Auto) 13.7 % (17.6-49.6) Monocytes (%) (Auto) 6.5 % (4.1-12.4) Eosinophils (%) (Auto) 2.2 % (0.4-6.7) Basophils (%) (Auto) 1.3 % (0.3-1.4) Nucleated RBC Relative Count (auto) 0.0 /100WBC Neutrophils # (Auto) 3.9 K/uL (2.0-7.4) Lymphocytes # (Auto) 0.7 K/uL (1.3-3.6) Monocytes # (Auto) 0.3 K/uL (0.3-1.0) Eosinophils # (Auto) 0.1 K/uL (0.0-0.5) Basophils # (Auto) 0.1 K/uL (0.0-0.1) Nucleated RBC Absolute Count (auto) 0.00 K/uL Erythrocyte Sedimentation Rate 22 mm/HOUR (0-20) Sodium Level 140 mmol/L (137-145) Potassium Level 3.7 mmol/L (3.5-5.0) Chloride Level 99 mmol/L (98-107) Carbon Dioxide Level 31 mmol/L (22-30) Blood Urea Nitrogen 15 mg/dl (9-21) Creatinine 1.20 mg/dl (0.66-1.25) Glomerular Filtration Rate Calc 58.9 Random Glucose 150 mg/dl (75-110) Calcium Level 8.9 mg/dl (8.4-10.2) Total Bilirubin 0.9 mg/dl (0.2-1.3) Aspartate Amino Transf (AST/SGOT) 18 U/L (0-35) Alanine Aminotransferase (ALT/SGPT) 29 U/L (0-56) Alkaline Phosphatase 76 U/L (0-126) Total Protein 6.8 g/dl (6.3-8.2) Albumin 3.8 g/dl (3.5-5.0) Blood Gas Patient Temperature 101 DEGREES Venous Blood pH 7.41 (7.31-7.41) Venous Blood Partial Pressure CO2 46 mmHg Venous Blood Partial Pressure O2 74 mmHg Venous Blood HCO3 29 mmol/L Venous Blood Oxygen Saturation 95 % Venous Blood Base Excess 5 mmol/L Oxygen Liters/Minute room air Lactate 1.6 mmol/L (0.7-2.1) Urine Color Yellow Urine Clarity Cloudy Urine pH 5.0 pH (4.8-9.5) Urine Specific [place] 1.017 Urine Protein Negative mg/dL (NEGATIVE) Urine Glucose (UA) Negative mg/dL (NEGATIVE) Urine Ketones Negative mg/dL (NEGATIVE) Urine Blood Moderate (NEGATIVE) Urine Nitrite Positive (NEGATIVE) Urine Bilirubin Negative (NEGATIVE) Urine Urobilinogen Negative mg/dL (0.2-1.9) Urine Leukocyte Esterase Large (NEGATIVE) Urine RBC 27 /HPF (0-2/HPF) Urine WBC 332 /HPF (0-5/HPF) Urine WBC Clumps Few /HPF Urine Squamous Epithelial Cells Many /LPF (NONE-FEW) Urine Calcium Oxalate Crystals Few /HPF (NONE) Urine Bacteria Few /HPF (NONE-FEW) Urine Mucus None /HPF (NONE-FEW) Chemistry Test 10/04/18 13:05 10/04/18 13:45 10/04/18 13:50 10/04/18 14:47 White Blood Count 5.1 k/uL (4.5-11.0) Red Blood Count 3.67 M/uL (4.00-5.60) Hemoglobin 11.6 g/dL (14.0-18.0) Hematocrit 33.7 % (42.0-52.0) Mean Corpuscular Volume 91.7 fL (80.0-96.0) Mean Corpuscular Hemoglobin 31.5 pg (26.0-33.0) Mean Corpuscular Hemoglobin Concent 34.4 g/dL (32.0-36.0) Red Cell Distribution Width 15.1 % (11.5-14.5) Platelet Count 115 K/uL (150-450) Mean Platelet Volume 7.2 fL (7.2-11.1) Neutrophils (%) (Auto) 76.3 % (39.4-72.5) Lymphocytes (%) (Auto) 13.7 % (17.6-49.6) Monocytes (%) (Auto) 6.5 % (4.1-12.4) Eosinophils (%) (Auto) 2.2 % (0.4-6.7) Basophils (%) (Auto) 1.3 % (0.3-1.4) Nucleated RBC Relative Count (auto) 0.0 /100WBC Neutrophils # (Auto) 3.9 K/uL (2.0-7.4) Lymphocytes # (Auto) 0.7 K/uL (1.3-3.6) Monocytes # (Auto) 0.3 K/uL (0.3-1.0) Eosinophils # (Auto) 0.1 K/uL (0.0-0.5) Basophils # (Auto) 0.1 K/uL (0.0-0.1) Nucleated RBC Absolute Count (auto) 0.00 K/uL Erythrocyte Sedimentation Rate 22 mm/HOUR (0-20) Glomerular Filtration Rate Calc 58.9 Calcium Level 8.9 mg/dl (8.4-10.2) Total Bilirubin 0.9 mg/dl (0.2-1.3) Aspartate Amino Transf (AST/SGOT) 18 U/L (0-35) Alanine Aminotransferase (ALT/SGPT) 29 U/L (0-56) Alkaline Phosphatase 76 U/L (0-126) Total Protein 6.8 g/dl (6.3-8.2) Albumin 3.8 g/dl (3.5-5.0) Blood Gas Patient Temperature 101 DEGREES Venous Blood pH 7.41 (7.31-7.41) Venous Blood Partial Pressure CO2 46 mmHg Venous Blood Partial Pressure O2 74 mmHg Venous Blood HCO3 29 mmol/L Venous Blood Oxygen Saturation 95 % Venous Blood Base Excess 5 mmol/L Oxygen Liters/Minute room air Lactate 1.6 mmol/L (0.7-2.1) Urine Color Yellow Urine Clarity Cloudy Urine pH 5.0 pH (4.8-9.5) Urine Specific [place] 1.017 Urine Protein Negative mg/dL (NEGATIVE) Urine Glucose (UA) Negative mg/dL (NEGATIVE) Urine Ketones Negative mg/dL (NEGATIVE) Urine Blood Moderate (NEGATIVE) Urine Nitrite Positive (NEGATIVE) Urine Bilirubin Negative (NEGATIVE) Urine Urobilinogen Negative mg/dL (0.2-1.9) Urine Leukocyte Esterase Large (NEGATIVE) Urine RBC 27 /HPF (0-2/HPF) Urine WBC 332 /HPF (0-5/HPF) Urine WBC Clumps Few /HPF Urine Squamous Epithelial Cells Many /LPF (NONE-FEW) Urine Calcium Oxalate Crystals Few /HPF (NONE) Urine Bacteria Few /HPF (NONE-FEW) Urine Mucus None /HPF (NONE-FEW) Urinalysis Test 10/04/18 14:47 Urine Color Yellow Urine Clarity Cloudy Urine pH 5.0 pH (4.8-9.5) Urine Specific [place] 1.017 Urine Protein Negative mg/dL (NEGATIVE) Urine Glucose (UA) Negative mg/dL (NEGATIVE) Urine Ketones Negative mg/dL (NEGATIVE) Urine Blood Moderate (NEGATIVE) Urine Nitrite Positive (NEGATIVE) Urine Bilirubin Negative (NEGATIVE) Urine Urobilinogen Negative mg/dL (0.2-1.9) Urine Leukocyte Esterase Large (NEGATIVE) Urine RBC 27 /HPF (0-2/HPF) Urine WBC 332 /HPF (0-5/HPF) Urine WBC Clumps Few /HPF Urine Squamous Epithelial Cells Many /LPF (NONE-FEW) Urine Calcium Oxalate Crystals Few /HPF (NONE) Urine Bacteria Few /HPF (NONE-FEW) Urine Mucus None /HPF (NONE-FEW) EKG/Imaging Imaging PATIENT NAME: Cal Arboleda : 1940 MR: [id number] V: [id number] EXAM DATE: [id number] ORDERING PHYSICIAN: MAYA ESTRADA TECHNOLOGIST: Location: [facility] - [place] Patient: Cal Arboleda : 1940 Visit/Account:[id number] Date of Sevice: 10/04/2018 EXAMINATION: CT cervical spine without IV contrast HISTORY: Fall 2 days ago. COMPARISON: None. TECHNIQUE: Axial images were obtained from the skull base through the upper thoracic spine without IV contrast administration. Coronal and sagittal reformatted images were obtained from the axial source data. One of the following dose optimization techniques was utilized in the performance of this exam: Automated exposure control; adjustment of the mA and/or kV according to the patient's size; or use of an iterative reconstruction technique. Specific details can be referenced in the facility's radiology CT exam operational policy. FINDINGS: Alignment: Normal. Cranio-cervical junction: Negative. Vertebral bodies: Negative. Posterior elements: Negative. Hardware: None. Disc spaces: Mild disc space narrowing and endplate sclerosis at C5-6 and C6-7. Soft tissues: Atherosclerotic calcifications of the arch, great vessels and bilateral carotid bulbs. Left-sided pacemaker wires partly visualized. Visualized upper chest: Mild emphysema. IMPRESSION: 1. No acute fracture of the cervical spine. 2. Mild degenerative disc disease at C5-6 and C6-7. PATIENT NAME: Cal Arboleda : 1940 MR: [id number] V: [id number] EXAM DATE: ORDERING PHYSICIAN: MAYA ESTRADA TECHNOLOGIST: Location: [facility] - [place] Patient: Cal Arboleda : 1940 Visit/Account:[id number] Date of Sevice: 10/04/2018 EXAMINATION: CT head without IV contrast HISTORY: Fall 2 days ago, headache. COMPARISON: CT head from 05/08/2018. TECHNIQUE: Contiguous axial images were obtained from the skull base to the vertex without intravenous contrast. Sagittal and coronal reformatted images are also submitted. One of the following dose optimization techniques was utilized in the performance of this exam: Automated exposure control; adjustment of the mA and/or kV according to the patient's size; or use of an iterative recons truction technique. Specific details can be referenced in the facility's radiology CT exam operational policy. FINDINGS: Brain volume: Mild generalized atrophy with associated concordant prominence of the ventricular system. Ventricles: Normal. Acute ischemic changes: None. Hemorrhage: There is an acute on chronic right frontoparietal subdural hematoma measuring 8 mm in greatest thickness (coronal image 48), with a few patchy areas of acute hemorrhage. There is also trace acute subarachnoid hemorrhage in the right frontal region at the vertex. Small acute hemorrhage in the mid body of the corpus callosum on the right measuring 8 x 3 mm (coronal image 49) by 10 mm (sagittal image 44), for estimated volume of 0.1 mL. Masses/edema: None. Leonard-white: Negative. White matter: Normal. Vessels: Calcified plaque of both carotid siphons. Extra-axial: See description of hemorrhage above. Calvarium/scalp: Mild right parietal scalp contusion. No acute fracture. Skull base/visualized face: Negative. Visualized sinuses/orbits: Minimal mucosal thickening in the bilateral ethmoid air cells. Mild nasal septal deviation to the left. IMPRESSION: 1. 8 mm thick acute on chronic right frontoparietal subdural hematoma, and trace acute traumatic subarachnoid hemorrhage in the right frontal region. 2. Small acute hemorrhage in the mid body of the corpus callosum on the right. 3. Right parietal scalp contusion without acute fracture, intracranial mass les ion or CT evidence of acute infarct. 4. No midline shift. These findings were discussed with MAYA ESTRADA at 10/04/2018 2:17 PM. ED Course/Re-evaluation ED Course Patient is a 77-year-old male here with complaints of headache which has been progressively worsening with mild decline in mental status per patient's family since Friday when the patient reportedly was walking distracted and fell striking the apex of the scalp on the ground. Questionable loss of consciousness. Patient denies being on blood thinners at this time. Patient was moving all extremities without motor weakness or sensory deficits, cranial nerves are intact. Patient was noted to have acute right sided subdural hematomas, acute bleed to the corpus callosum. Patient was noted to have mild confusion and somnolence per patient's daughter. Patient is alert and oriented at this time with no focal neurological deficits on examination. I discussed the patient with Dr. Moran who is the trauma doctor at [facility] who accepted the patient to his service. Both helicopter and fixed wing aircraft's were unable to fly at time of transfer so patient was transferred via ground transport. Patient was hemodynamically stable at time of transfer. Decision to Disposition Date: Oct 04, 2018 Decision to Disposition Time: 14:44 Depart Departure Latest Vital Signs Vital Signs Date Time Temp Pulse Resp B/P (MAP) Pulse Ox O2 Delivery O2 Flow Rate FiO2 10/04/18 15:30 145/77 (99) 10/04/18 15:05 94 96 10/04/18 13:38 101.0 20 Nasal Cannula Impression: Primary Impression: Subdural hematoma Additional Impression: Subarachnoid bleed Condition: Condition Unchanged (MCR) Disposition: XFER TO ACUTE CARE HOSPITAL Referrals: STEPHANIE VASQUEZ [employer] FERMENTATION OPERATOR-[facility], ON[facility] (PCP) Problem Qualifiers MAYA ESTRADA DO Oct 04, 2018 13:32
[~2018-10-04 13:35] MED LIST changes: -ALBU8.5H INH; -AMLO-127 PO; -FENT-15 TOP; -FENT-19 TOP; -FLUT16SP19 ENA
[2018-10-04] MEDS ORDERED: NS(*) 0.9% 1000 ML BAG 1,000 ML IV ONE (13:40)
[2018-10-04 13:52] LABS: PLATELET COUNT, AUTOMATED 115 K/uL (150-450)
--- NOTE | 2018-10-04 14:29 | RADIOLOGY IMAGING REPORT ---
FACILITY: [facility] - [place] PATIENT NAME: Cal Arboleda : 1940 MR: [id number] V: [id number] EXAM DATE: ORDERING PHYSICIAN: MAYA ESTRADA TECHNOLOGIST: Location: [facility] - [place] Patient: Cla Arboleda : 1940 Visit/Account:[id number] Date of Sevice: 10/04/2018 EXAMINATION: CT head without IV contrast HISTORY: Fall 2 days ago, headache. COMPARISON: CT head from 05/08/2018. TECHNIQUE: Contiguous axial images were obtained from the skull base to the vertex without intraven ous contrast. Sagittal and coronal reformatted images are also submitted. One of the following dose optimization techniques was utilized in the performance of this exam: Autom ated exposure control; adjustment of the mA and/or kV according to the patient's size; or use of an i terative reconstruction technique. Specific details can be referenced in the facility's radiology C T exam operational policy. FINDINGS: Brain volume: Mild generalized atrophy with associated concordant prominence of the ventricular syst em. Ventricles: Normal. Acute ischemic changes: None. Hemorrhage: There is an acute on chronic right frontoparietal subdural hematoma measuring 8 mm in gr eatest thickness (coronal image 48), with a few patchy areas of acute hemorrhage. There is also trace acute subarachnoid hemorrhage in the right frontal region at the vertex. Small acute hemorrhage in the mid body of the corpus callosum on the right measuring 8 x 3 mm (almonte l image 49) by 10 mm (sagittal image 44), for estimated volume of 0.1 mL. Masses/edema: None. Leonard-white: Negative. White matter: Normal. Vessels: Calcified plaque of both carotid siphons. Extra-axial: See description of hemorrhage above. Calvarium/scalp: Mild right parietal scalp contusion. No acute fracture. Skull base/visualized face: Negative. Visualized sinuses/orbits: Minimal mucosal thickening in the bilateral ethmoid air cells. Mild nasal septal deviation to the left. IMPRESSION: 1. 8 mm thick acute on chronic right frontoparietal subdural hematoma, and trace acute traumatic suba rachnoid hemorrhage in the right frontal region. 2. Small acute hemorrhage in the mid body of the corpus callosum on the right. 3. Right parietal scalp contusion without acute fracture, intracranial mass lesion or CT evidence of acute infarct. 4. No midline shift. These findings were discussed with MAYA ESTRADA at 10/04/2018 2:17 PM. Report Dictated By: Nichole Caro MD at 10/04/2018 2:15 PM Report E-Signed By: Nichole Caro MD at 10/04/2018 2:23 PM WSN:[id number]
--- NOTE | 2018-10-04 14:31 | RADIOLOGY IMAGING REPORT ---
FACILITY: [facility] PATIENT NAME: Cal Arboleda : 1940 MR: [id number] V: [id number] EXAM DATE: ORDERING PHYSICIAN: MAYA ESTRADA TECHNOLOGIST: Location: [facility] Patient: Cal Arboleda : 1940 Visit/Account:[id number] Date of Sevice: 10/04/2018 EXAMINATION: CT cervical spine without IV contrast HISTORY: Fall 2 days ago. COMPARISON: None. TECHNIQUE: Axial images were obtained from the skull base through the upper thoracic spine without I V contrast administration. Coronal and sagittal reformatted images were obtained from the axial [facility] e data. One of the following dose optimization techniques was utilized in the performance of this exam: Autom ated exposure control; adjustment of the mA and/or kV according to the patient's size; or use of an i terative reconstruction technique. Specific details can be referenced in the facility's radiology C T exam operational policy. FINDINGS: Alignment: Normal. Cranio-cervical junction: Negative. Vertebral bodies: Negative. Posterior elements: Negative. Hardware: None. Disc spaces: Mild disc space narrowing and endplate sclerosis at C5-6 and C6-7. Soft tissues: Atherosclerotic calcifications of the arch, great vessels and bilateral carotid bulbs. Left-sided pacemaker wires partly visualized. Visualized upper chest: Mild emphysema. IMPRESSION: 1. No acute fracture of the cervical spine. 2. Mild degenerative disc disease at C5-6 and C6-7. Report Dictated By: Nichole Caro MD at 10/04/2018 2:23 PM Report E-Signed By: Nichole Caro MD at 10/04/2018 2:25 PM WSN:[id number]
[2018-10-04 15:30] VITALS: BP 145/77
== END 2018-10-04 16:46 | disposition short-term general hospital (02) ==
LOC: ER 13:36
DX: S06.5X9A Traumatic subdural hemorrhage with loss of consciousness of unspecified duration, initial encounter (principal); I60.9 Nontraumatic subarachnoid hemorrhage, unspecified
CPT/HCPCS: 36415; 70450; 72125; 81001; 82803; 83605; 85025; 85651; 87040; 96360; 96361; 99285; J7030; 82040; 82247; 82310; 82374; 82435; 82565; 82947; 84075; 84132; 84155; 84295; 84450; 84460; 84520

== ENCOUNTER → 2018-10-04 | Outpatient (CLI) | payer MEDICARE, OTHER ==
[2017-04-29 08:08] VITALS: BMI 32.1
[~2018-10-04] MED LIST changes: +ALBU8.5H INH; +AMLO-127 PO; +FENT-15 TOP; +FENT-19 TOP; +FLUT16SP19 ENA; -IOPAMIDOL 76% 100 ML INFUS BTL 100 ML ONE
== END ==
LOC: AMB 16:09
PROVIDERS: ATTEND Nurse Practitioner
DX: S06.5X9A Traumatic subdural hemorrhage with loss of consciousness of unspecified duration, initial encounter (principal); R11.0 Nausea
CPT/HCPCS: A0425; A0426

== ENCOUNTER → 2018-10-04 | Outpatient (CLI) | payer MEDICARE, OTHER ==
[2017-04-29 08:08] VITALS: BMI 32.1
== END ==
LOC: AMB 13:07
PROVIDERS: ATTEND Nurse Practitioner
DX: R51 Headache (principal); R11.0 Nausea
CPT/HCPCS: A0425; A0427

== ENCOUNTER 2018-10-09 08:37 | Inpatient (IN) | payer MEDICARE, OTHER ==
[2017-04-29 08:08] VITALS: Ht 180.3 cm; Wt 104.8 kg
[~2018-10-09] VITALS: Ht 180.3 cm; Wt 104.8 kg
[2018-10-09] MEDS ORDERED: CALCIUM CARBONATE 500 MG CHEW PO PRN (11:15)
[2018-10-09] MEDS ORDERED: HYOSCYAMINE SULF*0.125 MG SUBL SL PRN ×2 (11:15→13:10)
[2018-10-09] MEDS ORDERED: ALBUTEROL 8 GM INHALER INH PRN (11:15)
--- NOTE | 2018-10-09 12:39 | NUR ---
Physical Therapy Impression PT/OT co-eval complete. See EMR and other reports for detailed report. Pt reporting 0/10 pain. Sit<>stand transfer from wheelchair performed with SBA and use of RW. Pt ambulated 100 ft with SBA, use of RW, and 3L of O2. Pt with no complaints of pain or difficulty with ambulation, outside of reduced endurance. Pt left sitting in chair with family present in room. Pt would benefit from further skilled PT care to improve overall strength/mobility to levels safe to function independently. Physical Therapy Goals 1. Bobby bed mobility 2. Bobby sit to stand transfers 3. Bobby ability to ambulated 150 ft with use of least restrictive device 4. SBA ability to ascend/descend 1 step Patient's Goals
--- NOTE | 2018-10-09 13:13 | Consultant Pharmacy Review ---
Biomathematician Review Medication Review Do All Mecications have a Diag: Yes Other General Cautions MiraLax [OTC]; QUEtiapine; TiZANidine View interaction detail by clicking on link. * Drug-Drug Interactions * D Calcium Carbonate (Antacids) Hyoscyamine Depends on Dosage Form and Route D FentaNYL (TOEING STOCKINGS Depressants) Lortab (HYDROcodone) D FentaNYL (Opioid Agonists) Lyrica (TOEING STOCKINGS Depressants) D FentaNYL (Opioid Agonists) QUEtiapine (TOEING STOCKINGS Depressants) D FentaNYL (Opioid Agonists) TiZANidine (TOEING STOCKINGS Depressants) D Lortab (HYDROcodone) Lyrica (TOEING STOCKINGS Depressants) D Lortab (HYDROcodone) QUEtiapine (TOEING STOCKINGS Depressants) D Lortab (HYDROcodone) TiZANidine (TOEING STOCKINGS Depressants) C AmLODIPine (Blood Pressure Lowering Agents) DULoxetine C AmLODIPine (Blood Pressure Lowering Agents) QUEtiapine (Antipsychotic Agents (Second Generation [Atypical])) C AmLODIPine (Blood Pressure Lowering Agents) TiZANidine (Hypotension-Associ ated Agents) C AmLODIPine (Calcium Channel Blockers) Calcium Carbonate (Calcium Salts) C DULoxetine TiZANidine (Blood Pressure Lowering Agents) C DULoxetine (Agents with Antiplatelet Properties) Meloxicam (Agents with Antiplatelet Properties) Depends on International labeling C DULoxetine (Serotonin Modulators) FentaNYL (Opioid Agonists) C DULoxetine (Serotonin Modulators) FentaNYL (Serotonin Modulators) C DULoxetine (Serotonin Modulators) Lortab (Opioid Agonists) C DULoxetine (Serotonin Modulators) QUEtiapine (Antipsychotic Agents) C DULoxetine (Serotonin/Norepinephrine Reuptake Inhibitors) Meloxicam (Nonsteroidal Anti-Inflammatory Agents (Nonselective)) C FentaNYL (Opioid Agonists) Hyoscyamine (Anticholinergic Agents) C Hyoscyamine (Anticholinergic Agents) Lortab (Opioid Agonists) C Hyoscyamine (Anticholinergic Agents) Mirabegron C Hyoscyamine (Anticholinergic Agents) QUEtiapine (Anticholinergic Agents) Pneumococcal Vaccine HX Pneumo Vac ([id number]): Yes (2014) Comments Regarding the Review Patient may receive the pneumococcal vaccine that he did not receive in 2015, if he desires. Between the acetaminophen and Lortab, give no more than 4 gm of acetaminophen per 24 hours. He is on multiple medications that may cause drowsiness/dizziness, increasing his risk for falls. DORYS PENNY Oct 09, 2018 13:13
[2018-10-09 13:20] VITALS: BP 136/61
--- NOTE | 2018-10-09 13:55 | OT ECF NOTE ---
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 Occupational Therapy Evaluation Date: 10/09/18 SUBJECTIVE: Prior Hospitalization: [facility] 10/04/18-10/09/18 Prior Level of Function: independent Prior Living Status: Single level house, Spouse, Assist by family Community Services: Independent Home Accessibility: One step into home, All needs on one level, Walk-in shower Equipment Owned: Medical Complications/Past Medical History: COPD, stenosis of the heart, pacemaker, HTN, chronic anemia Psychosocial Support: and daughter and her are in town Pain Scale (0-10): 0 Hand Dominance: right OBJECTIVE: ROM: Both upper extremities WFL Functional Transfer: Assistive Device: Front wheeled walker Transfer Ability: CGA ADL: Upper body dressing: Assistive device: Upper body dressing ability: SBA, Set-up Lower body dressing: Assistive device: Lower body dressing ability: Maximum assistance Toileting: Assistive device: patient has colostomy and super pubic catheter Toileting ability: Grooming/hygiene: Assistive device: not assessed Grooming ability: not assessed Bathing: Assistive device: not assessed Bathing ability: not assessed ASSESSMENT: Patient presents with decreased independence and safety with self care performance due to fall. Patient was independent with self cares prior. Plan is for the patient to return back home with and assistance from family. Patient to benefit from skilled OT services to increase independence with self cares. Problem List/Current Limitations: Decreased strength, Generalized weakness, Decreased problem solving Short Term Goals: 1. Patient will be I with UB dressing 2. Patient will be I with LB dressing 3. Patient will be I with toileting 4. Patient will be I with grooming and hygiene at sinkfront Customer Support Representative Goals: return back home with family, family would like home health services upon discharge Patient Goals: return back home Rehabilitation Prognosis: Good Barriers to Discharge: none PLAN: The patient will benefit from skilled occupational therapy services 5 times per week for 2 weeks including: ADL training, Safety training, IADL training Thank you for this referral. If you have any questions, concerns, or comments about this report or plan, please contact me at . Arlene Alberts MS, OTR/L Occupational Therapist [facility]HETT
--- NOTE | 2018-10-09 14:38 | History & Physical ---
History of Present Illness Chief Complaint Falls History of Present Illness 77yo male with extensive PMHx returns to [facility] following a fall during which he sustained subdural hematoma and subarachnoid hemorrhage. He did not have any surgical intervention. Repeat CT scans reportedly showed stable findings. He reports improvements over the past several days, but still feels weak and very shaky when up/ambulating. He now returns to continue rehabilitative therapy. History Problems: (1) Narcotic dependence Status: Chronic (2) Subdural hematoma Status: Acute (3) Subarachnoid bleed Status: Acute (4) Hypercholesterolemia Status: Chronic (5) Congestive heart failure Status: Chronic (6) COPD (chronic obstructive pulmonary disease) Status: Chronic (7) Viral myocarditis Status: Chronic (8) GERD (gastroesophageal reflux disease) Status: Chronic (9) CAD (coronary artery disease) Status: Chronic (10) Depression, endogenous Status: Chronic (11) Hypertension Status: Chronic (12) Pancytopenia Status: Chronic (13) Chronic pain syndrome Status: Chronic (14) Prostate cancer Status: Chronic (15) Pacemaker Status: Chronic (16) On home O2 Status: Chronic (17) Chronic indwelling Arnett catheter Status: Chronic (18) Suprapubic catheter Status: Chronic (19) History of colostomy Status: Chronic (20) History of cardiac catheterization Status: Resolved Home Meds Active Scripts Hyoscyamine Sulfate (LEVSIN-SL) 0.125 Mg Tab.subl, 0.125 MG SL Q6H PRN for SPASMS for 7 Days, #30 CAP 3 Refills Prov:AUTUMN COVARRUBIAS MD 07/21/18 Methenamine Hippurate (HIPREX) 1 Gm Tab, 1 GM PO DAILY for urinary tract infection for 30 Days, #30 TAB 4 Refills Take one tablet daily with a glass of orange juice Prov:AUTUMN COVARRUBIAS MD 07/13/18 Duloxetine Hcl (CYMBALTA) 60 Mg Capsule.dr, 60 MG PO QDAY, #90 CAP 1 Refill Prov:DANIELA CRUZ MD 06/30/18 Meloxicam (MELOXICAM) 15 Mg Tablet, 15 MG PO QDAY PRN for pain, #90 TAB 1 Refill Prov:DANIELA CRUZ MD 06/10/18 Fentanyl (Fentanyl) 1 Each Patch.td72, 12 MCG TD Q48H, #15 PATCH Prov:DANIELA CRUZ MD 03/24/18 Fentanyl (Fentanyl) 1 Each Patch.td72, 50 MCG TD Q72H, #15 PATCH Prov:DANIELA CRUZ MD 03/24/18 Acetaminophen/Hydrocodone (HYDROCODON-ACETAMINOPHN 10-325) 1 Each Tab, 1 TAB PO BID PRN for prn, #60 TAB Prov:DANIELA CRUZ MD 03/24/18 Mirabegron (MYRBETRIQ) 50 Mg Tab.er.24h, 50 MG PO DAILY for bladder spasm for 30 Days, #30 CAP 3 Refills Prov:AUTUMN COVARRUBIAS MD 03/17/18 Pregabalin (LYRICA) 75 Mg Capsule, 75 MG PO BID, #60 CAPSULE 3 Refills Prov:DANIELA CRUZ MD 02/25/18 Tizanidine Hcl (TIZANIDINE HCL) 4 Mg Tablet, 4 MG PO BID PRN for pain, spasm, #60 TAB 3 Refills Prov:DANIELA CRUZ MD 01/26/18 Quetiapine Fumarate (QUETIAPINE FUMARATE) 50 Mg Tablet, 50 MG PO QHS, #90 TAB 1 Refill Prov:DANIELA CRUZ MD 01/20/18 Potassium Chloride (KLOR-CON 10) 10 Meq Tablet.er, 10 MEQ PO QDAY, #30 TAB 6 Refills Prov:DANIELA CRUZ MD 07/04/16 Reported Medications Amlodipine Besylate (AMLODIPINE BESYLATE) 5 Mg Tablet, 1 TAB PO QDAY, TAB 07/09/17 Folic Acid (FOLIC ACID) 1 Mg Tablet, 1 MG PO QDAY, TAB 12/07/15 Cyanocobalamin (Vitamin B-12) (B-12) 1,000 Mcg Tablet.er, 1000 MCG PO QDAY 12/07/15 Allergies: Coded Allergies: meperidine (Verified Allergy, Severe, MAKES HIM VIOLENTLY ILL, DROPS HIS BP, 09/27/15) albuterol (Verified Adverse Reaction, Mild, MAKES FACE NUMB, FLUSH, 09/27/15) Patient History: FH: OK (myocardial infarction) FATHER, , Age:67 FH: cancer SISTER FH: diabetes mellitus SISTER FH: esophageal cancer FATHER, , Age:67 FH: renal failure SISTER Osteoarthritis SISTER Hx Smoking: Yes Smoking Status: Former Smoker Exposure to Second Hand Smoke?: No Caffeine Intake: Soda Caffeine/Cups Per Day: 1 Hx Alcohol Use: No Hx Substance Use Disorder: No Review of Systems Neurological: Weakness Musculoskeletal: Impaired Mobility Exam Vital Signs Vital Signs Date Time Temp Pulse Resp B/P (MAP) Pulse Ox O2 Delivery O2 Flow Rate FiO2 10/09/18 13:20 98.6 78 22 136/61 (86) 98 Nasal Cannula 3.0 General Appearance: Alert, Awake, Other (appears tremulous/stuttering) Neuro: Other (generalized weakness all groups) Eyes: PERRLA Cardiovascular: Regular Rate and Rhythm Respiratory: Clear to Auscultation Chest: No Tenderness GI: Abd Soft and Non-Tender, Other (colostomy LLQ) : Other (suprapubic cath) Extremities: Warm, Perfused Integumentary: Other (abrasions over both knees) Psych: Alert & Oriented X3 Assessment and Plan Problems: (1) Falls Status: Chronic Assessment & Plan: He has been having fairly frequent falls with the last resulting in traumatic brain injury. Will have PT/OT see him. He is also on multiple centrally acting medications. Will see if we can discontinue or reduce doses on some of his medications. (2) Subarachnoid bleed Status: Acute Assessment & Plan: Due to fall. He was evaluated by Trauma/Neurosurgical services and felt top be stable for rehab. Will need to stop his NSAID (meloxica m). He will also not be a candidate for DVT prophylaxis with anticoagulant. (3) Subdural hematoma Status: Acute Assessment & Plan: See above. (4) BRIDGETT on CPAP Status: Chronic Assessment & Plan: He is currently on ASV. Will continue with same. (5) Pancytopenia Status: Chronic Assessment & Plan: Will recheck his labs. Monitor. (6) Suprapubic catheter Status: Chronic Assessment & Plan: Will change when necessary. It was last changed 10/01/18. (7) History of colostomy Status: Chronic (8) Prostate cancer Status: Chronic Venous Thromboembolism Antithrombotics Is Pt On Any Antithrombotics?: No (SAH/SDH) Heart Failure Ejection Fraction %: 58 RVSP (mmHg): 40 NYHA Class: I Is Patient on PETE Inhibitor?: Yes Is Patient on Beta Candida?: No Admission Weight: 236 BERNABE STAPLETON MD Oct 09, 2018 14:38
--- NOTE | 2018-10-09 15:01 | Medical Nutrition Therapy ---
Nutrition Anthropometrics Height (Inches): 71 (from past admit) Weight (Pounds): 241 (from past admit) Keshawn Nutrition Score: Keshawn Nutrition Risk Score: Dietary Referral Nutrition Risk Factors: Nutrition Risk Comment: Nutritional Diagnosis Nutritional Risk Acuity 3: Fair Appetite Nutritional Risk Acuity 4: Modified Diet Past Medical History: prostate cancer, colostomy, BRIDGETT, neuropathy, hypercholesterolemia, CHF, COPD, GERD, CAD, depression, HTN, pacemaker, T2DM Nutritional Acuity: 3-Mild Energy Requirement: 2200 (20kcal/kg) Protein Requirement: 98 (.9gm/kg) Fluid Requirement: 2200 (20ml/kcal) Diet Type: Diabetic Nutrition Intervention: Cont diet as ordered, Encourage intake, HS snack Nutrition Monitoring & Eval Nutrition Goals: Eat 75-100% Meal, Drink > 2 liters/day RD Patient Assessment Time: [address] Assessment Type: RD Assessment Patient Nutrition Acuity: 3-Mild Follow Up Date: Oct 13, 2018 Nutritional Comment: 10/09 Pt admitted for weakness s/p subdurmal hematoma. Pt on diabetic diet and ate 25% of first meal in facility. No current labs, wt or ht. Will cont to monitor and encourage intake. BELINDA ERICKSON Oct 09, 2018 14:55
--- NOTE | 2018-10-09 15:38 | PT ECF NOTE ---
Type of Note: Initial Note Primary Medical Diagnosis: TBI, subdural hematoma and subarachnoid hemorrhage Physical Therapy Evaluation Date: 10/09/2018 SUBJECTIVE: Prior Hospitalization: 10/04/2018 - 10/09/2018 at [facility] Prior Level of Function: Independent with all ADLs and IADLs, no assistive device use Prior Living Status: Single level house, Spouse Community Services: Independent Home Accessibility: One step into home Equipment Owned: Front wheeled walker Medical Complications/Past Medical History: See EMR Pain Scale (0-10): 0/10 OBJECTIVE: Strength: Right Lower Extremity: DF: Lacking full range Knee extension: Reporting pain, Reports pain where catheter bag was tightly taped to distal leg. Hip flexion: 3+/5 Left Lower Extremity: DF: 4/5 Knee extension: 4/5 Hip flexion: 3+/5 Bed Mobility: Not assessed at evaluation Assistive device: Transfers: SBA Assistive Device: Front wheeled walker Gait: SBAx 100 ft Assistive device: Front wheeled walker, 3L of O2 Stairs: Not assessed at evaluation Assistive device: ASSESSMENT: PT'/OT co-eval complete. Pt with decreased activity tolerance, ambulating 100 ft with reports of being fatigued. Pt reporting car ride from [facility] could have contributed to increased fatigue during session. Pt demonstrating adequate strength to perform transfers and ambulation. Bed mobility and stairs not assessed at time of evaluation. Pt would benefit from further skilled PT care to continue to improve strength/endurance to levels capable of functioning safely independently. Problem List/Current Limitations: Decreased activity alok, Decreased strength, Decreased coordination, Decreased balance, and Generalized weakness Short Term Goals: 1. Bobby bed mobility 2. Bobby sit to stand transfers 3. Bobby ability to ambulated 150 ft with use of least restrictive device 4. SBA ability to ascend/descend 1 step Rehabilitation Prognosis: Good Barriers for Discharge: Potential cognitive effects of TBI, Previous baseline level was fully independent PLAN: The patient will benefit from skilled physical therapy services 5 times per week for 2 weeks including: Therapeutic Exercise, Therapeutic Activities, Transfer Training, Gait Training, Stair Training, ADL's, Safety Training, Neuromuscular Re-educ., Pt/Caregiver Training,manual therapy and Bed Mobility Thank you for this referral. If you have any questions, concerns, or comments about this report or plan, please contact me at . Kingston Penny, ANURADHA Morrowter, PT, DPT MTDD
--- NOTE | 2018-10-09 15:43 | NUR ---
This Physical Therapist or Service Counter Cashier was present for the entire physical therapy session directing the services, making the skilled judgement, and was not engaged in treating another patient or doing another task at the same time as the treatment session. Addendum: 10/09/18 at 1543 by FRANCIS FRANCO PT Amended: Links added.
[2018-10-09 17:27] VITALS: BP 140/72
[2018-10-09] MEDS: ACETAMINOPHEN 500 MG TAB PO SCH (17:30)
[2018-10-09] MEDS: POLYETHYLENE GLYCOL 17 GM PKT PO SCH ×2 (20:51→21:00)
[2018-10-09] MEDS: FLUTICASONE PROP 0.05% 16 GM SCH (20:53)
[2018-10-09] MEDS: amLODIPine BESYL(*) 5 MG TAB PO SCH (20:57)
[2018-10-09] MEDS: BETAMETHASO/CLOTRIMAZOLE 15 GM TP SCH (20:57)
[2018-10-09] MEDS: DOCUSATE SODIUM 100 MG CAP PO SCH (20:57)
[2018-10-09] MEDS: PREGABALIN 75 MG CAPSULE PO SCH (20:57)
[2018-10-09] MEDS: DULoxetine HCL 30 MG CAPCR PO SCH (20:57)
[2018-10-09] MEDS: QUEtiapine FUM 25 MG TAB PO SCH (20:58)
[2018-10-09] MEDS: APAP/HYDROCODONE 325/10 TAB PO PRN (20:58)
[2018-10-09] MEDS ORDERED: QUEtiapine FUM 25 MG TAB PO SCH (21:00)
[2018-10-09] MEDS ORDERED: MELOXICAM 7.5 MG TAB PO SCH (21:00)
[2018-10-09] MEDS ORDERED: MIRABEGRON 25 MG ER TAB PO SCH (21:00)
[2018-10-10] MEDS: ACETAMINOPHEN 500 MG TAB PO SCH ×4 (00:29→17:33)
[2018-10-10 06:48] LABS: PLATELET COUNT, AUTOMATED 155 K/uL (150-450)
[2018-10-10 09:00] VITALS: BP 136/57
[2018-10-10] MEDS: POLYETHYLENE GLYCOL 17 GM PKT PO SCH ×2 (09:00→20:33)
[2018-10-10] MEDS: BETAMETHASO/CLOTRIMAZOLE 15 GM TP SCH ×2 (09:00→20:33)
[2018-10-10] MEDS ORDERED: fentaNYL 50 MCG TDSY TD SCH (09:00)
[2018-10-10] MEDS: DOCUSATE SODIUM 100 MG CAP PO SCH ×2 (09:00→20:33)
--- NOTE | 2018-10-10 09:20 | NUR ---
Fentanyl patch Pain patch was changed this AM, old patch disposed of in sharps container in room.
[2018-10-10] MEDS: FENTANYL TOP SCH (09:55)
[2018-10-10] MEDS: TDSY TOP SCH (09:55)
--- NOTE | 2018-10-10 12:09 | SPEECH INITIAL EVALUATION ---
[*]INITIAL SPEECH THERAPY EVALUATION REPORT Cognitive Communication Assessment Patient Name: Cal Arboleda Ordering Provider: Dr. Dolores Kruger Date of Evaluation: 10-10-18 Patient : 1940, 77yo M Clinician: Alissa Grimes M.S., CCC-WATCH INSPECTOR FINAL MOVEMENT Treatment Dx: mild cognitive- linguistic deficits. BACKGROUND The patient is a 77-year old male re-admitted to [facility] 10/09/18 for continued rehab following stay at [facility]. The patient sustained subdural hematoma and subarachnoid hemorrhage following a fall. Has history of syncope, CHF, COPD. According to records sent from [facility] he was receiving OT/PT but not ST. He primary complaint at this time is I cant get comfortable. He also reports changes to speech fluency and difficulty expressing himself. Primary Medical Diagnosis: syncope, sustained subdural hematoma and subarachnoid hemorrhage Past Medical Hx: syncope, COPD, CHF Pain Scale (0-10): patient w/ no reports of pain. LOC / Participation: A&O x4. alert, cooperative Motor Speech: mild disfluency Voice: WFL Dysphagia: following completion of the cognitive evaluation, nursing reported patient coughed taking pills with water this morning. Nursing will inform ST if this continues COGNITIVE LINGUISTIC ASSESSMENT Pt was seen at bedside for cognitive linguistic analysis using the [place] Cognitive Assessment, (Version 7.2) paired with informal evaluation procedures. The pt obtained a score of 22/30 (>26/30=WNL) on the MOCA, exhibiting mild cognitive linguistic deficits. Affected domains include, delayed recall and visuospatial. Relative areas of strength were noted in orientation, language, immediate recall, executive function, naming, and attention. The pt was oriented to self, location, general situation, and temporal concepts without assistance. Fatigue and physical discomfort likely negatively impacted ability to store novel information for short-term recall. With category cues, the patient was able to recall 4/5 target words in delayed recall task. Working memory was strong as was his ability to initiate/persist throughout task completion. All verbal responses to direct questions were appropriate to situation and contained sufficient detail for successful communicative intent. No word finding or other language deficits were noted. Motor speech was mildly/intermittently disfluent with occasional repetition of syllables and entire short words as well as word/phrase restarts and distorted consonants/vowels with possible occasional omissions. Pt successfully repaired majority of all speech utterances unassisted. When asked to repeat, the second utterance was presented with higher intelligibility than the original. Overall intelligibility was approximately 95% for the unfamiliar listener. At this time, the pt appears to be functioning mildly below baseline from a cognitive-linguistic standpoint. Pt has good insight into cognitive changes. He agrees his is not yet ready to return home. He complains of fatigue which is compounded by lack of sleep d/t physical discomfort. Severity of cognitive linguistic deficits is likely exacerbated by fatigue and pt was unable to tolerate further assessment following completion of MOCA . Current cognitive deficits are likely to impede consistently safe and successful performance with IADLs including recall of medication administration, appointment attendance, financial systems director, and safety with routine tasks (e.g., cooking). Skilled ST services are warranted in to continue therapeutic assessment of cognitive-linguistic skills and to provide pt/caregiver instruction in strategies to support identified areas of impairment for safe and successful transition from hospital environment. RECOMMENDATIONS 1. ST 3x/wk PROGNOSIS: Good, strong insight, expressed willingness to work with ST PLAN OF CARE Short Term Goals 1. The patient will refer to external memory aides when provided with min assist to support retention of functional, novel information with 95%acc for improved safety and knowledge of daily activities (e.g., medication list, medical appointments, etc). 2. The patient will demonstrate visuospatial skills at 95% with min assist for improved independence and safety for IADLs 3. Pt will demonstrate 3 or more techniques for improved motor speech functional with min assist for improved functional verbal communication. 4. Pt will achieve score of 26 or above on MOCA to demonstrate cognitive- linguistic skills WNL [place] Goal Pt will demonstrate level of safety and independence to allow return to prior living situation Thank you for this referral. Please call [phone] to contact with any questions or concerns. Alissa Grimes M.S., CCC-WATCH INSPECTOR FINAL MOVEMENT [place]
[2018-10-10 15:13] VITALS: BP 152/88
[2018-10-10] MEDS: APAP/HYDROCODONE 325/10 TAB PO PRN ×2 (15:13→20:31)
[2018-10-10] MEDS: FLUTICASONE PROP 0.05% 16 GM SCH (20:31)
[2018-10-10] MEDS: PREGABALIN 75 MG CAPSULE PO SCH (20:32)
[2018-10-10] MEDS: QUEtiapine FUM 25 MG TAB PO SCH (20:32)
[2018-10-10] MEDS: DULoxetine HCL 30 MG CAPCR PO SCH (20:32)
[2018-10-10] MEDS: amLODIPine BESYL(*) 5 MG TAB PO SCH (20:43)
[2018-10-11] MEDS: ACETAMINOPHEN 500 MG TAB PO SCH ×3 (01:45→17:08)
[2018-10-11] MEDS: APAP/HYDROCODONE 325/10 TAB PO PRN ×2 (03:32→20:24)
[2018-10-11 07:28] VITALS: BP 130/70
[2018-10-11] MEDS: POLYETHYLENE GLYCOL 17 GM PKT PO SCH ×2 (09:00→20:24)
[2018-10-11] MEDS: BETAMETHASO/CLOTRIMAZOLE 15 GM TP SCH ×2 (09:00→20:25)
[2018-10-11] MEDS: DOCUSATE SODIUM 100 MG CAP PO SCH ×2 (09:00→20:25)
--- NOTE | 2018-10-11 11:18 | NUR ---
Diarrhea Patient has had two liquid stools this morning, as well as liquid stools in the night and yesterday. Patient reported that he almost never has diarrhea. He was direct admitted to [facility] from [facility]. I was unable to determine from the records that were faxed from [facility] if patient had had any antibiotics while he was there. I then notified Dr. Elda Kruger, who gave order to determine whether he had had antibiotic recently, and if he had, to collect BM to check for C. diff. This RN then phoned [facility]'s Medical Records department and found out that they are not available on weekends, and nursing smoke control supervisor was not available. Pt stated that he has no idea whether or not he had antibiotics. This RN is choosing to err on the side of safety and will collect next BM for sample to check for C. diff.
--- NOTE | 2018-10-11 11:49 | NUR ---
Pt placed on contact isolation Until we obtain next diarrhea sample and results from check for C. diff, pt will be on isolation per hospital policy. Patient meets criteria for C. diff testing per hospital policy.
--- NOTE | 2018-10-11 14:14 | NUR ---
Contact isolation precautions d/c'd Labs for C. diff ag and toxins A&B negative, so contact isolation d/c'd.
[2018-10-11] MEDS ORDERED: LOPERAMIDE HCL 2 MG CAP PO PRN (14:15)
[2018-10-11 15:25] VITALS: BP 149/76
--- NOTE | 2018-10-11 18:01 | NUR ---
Oxygen sats Patient's oxygen sats on room air have been checked twice this afternoon. Each time, his sats remained at 93-94%; the first time he lasted 5 minutes and the second time he lasted 10 minutes. His respiratory rate went from about 22 to about 28 breaths per minute with each trial. Then he said, "I can feel it," and put back on his Bi-PAP with O2 at 2.5 LPM. We will continue to monitor his sats.
[2018-10-11] MEDS: PREGABALIN 75 MG CAPSULE PO SCH (20:24)
[2018-10-11] MEDS: FLUTICASONE PROP 0.05% 16 GM SCH (20:24)
[2018-10-11] MEDS: amLODIPine BESYL(*) 5 MG TAB PO SCH (20:24)
[2018-10-11] MEDS: QUEtiapine FUM 25 MG TAB PO SCH (20:24)
[2018-10-11] MEDS: DULoxetine HCL 30 MG CAPCR PO SCH (20:24)
[2018-10-12] MEDS: ACETAMINOPHEN 500 MG TAB PO SCH ×3 (01:00→16:57)
[2018-10-12 07:21] VITALS: BP 151/76
[2018-10-12] MEDS: FENTANYL PATCH REMOVAL TP SCH (09:00)
[2018-10-12] MEDS: DOCUSATE SODIUM 100 MG CAP PO SCH ×2 (09:00→19:38)
[2018-10-12] MEDS: BETAMETHASO/CLOTRIMAZOLE 15 GM TP SCH ×2 (09:00→19:38)
[2018-10-12] MEDS: POLYETHYLENE GLYCOL 17 GM PKT PO SCH ×2 (09:00→19:38)
[2018-10-12] MEDS: TDSY TOP SCH (09:42)
[2018-10-12] MEDS: FENTANYL TOP SCH (09:42)
--- NOTE | 2018-10-12 13:15 | NUR ---
Physical Therapy Impression Pt progressing well with PT tx. Pt able to ambulate 500' with RW and ascend/descend 4 stairs with rails with SBA/CGA. Physical Therapy Goals 1. Bobby bed mobility 2. Bobby sit to stand transfers 3. Bobby ability to ambulated 150 ft with use of least restrictive device 4. SBA ability to ascend/descend 1 step Patient's Goals
--- NOTE | 2018-10-12 13:29 | NUR ---
Occupational Therapy Impression Set-up UB/LB dressing. SBA grooming standing sinkfront [id number]. CGA ambulation x40ft, x60ft with RW. SBA sit to supine. SpO2 WNL on 2L. Continue POC. Occupational Therapy Goals 1. Patient will be I with UB dressing 2. Patient will be I with LB dressing 3. Patient will be SBA with toileting 4. Patient will be SBA with grooming and hygiene at sinkfront Patient's Goal
--- NOTE | 2018-10-12 15:20 | Medical Nutrition Therapy ---
Nutrition Anthropometrics Height (Inches): 71.00 Height (Calculated Centimeters: 180.996089 Weight (Pounds): 231 Weight (Calculated Kilograms): 105.007 BMI: 32.3 Hx Weight Loss: Yes (10/04/18-Wt was 241 lbs, current 10/10/18 231 lbs) Keshawn Nutrition Score: Adequate Keshawn Nutrition Risk Score: 20 Dietary Referral Nutrition Risk Factors: Nutrition Risk Comment: Physical Findings Physical Appearance: Obese BMI 30-39 Skin Appearance Skin Appearance: Edema Edema Location Modifier: Both Edema Location: Lower Extremity/Feet Type of Edema: Degree of Edema: Gastrointestinal Symptoms GI Symtoms: Diarrhea Tube Present: Bowel Sounds: Recent Bowel Pattern: Colostomy Stool Characteristics: Soft Nutrition/Food History Poor Breakfast: Typically eats 3 meals per day at home Nutritional Diagnosis Nutritional Risk Acuity 3: Fair Appetite Nutritional Risk Acuity 4: Modified Diet Past Medical History: prostate cancer, colostomy, BRIDGETT, neuropathy, hypercholesterolemia, CHF, COPD, GERD, CAD, depression, HTN, pacemaker, T2DM Nutritional Acuity: 3-Mild Energy Requirement: 2200 (20kcal/kg) Protein Requirement: 98 (.9gm/kg) Fluid Requirement: 2200 (20ml/kcal) Diet Type: Diabetic, Diet as Tolerated LATRELL/REG Nutrition Intervention: Cont diet as ordered, Encourage intake, HS snack Diet Comment To [facility]: PLEASE DELIVER PEANUT BUTTER & CRACKERS AT 1000 & HARD BOILED EGG/APPLE AT 1400 Nutrition Monitoring & Eval Nutrition Goals: Eat 75-100% Meal Nutritional Goals Comment: Maintain weight, especially lean body mass by consuming high protein foods. Nutrition Follow-Up: Good Intake, Fair Intake (PT eating 72% average x 9 meals (states appetite not good here)) RD Patient Assessment Time: [address] Assessment Type: RD Assessment Patient Nutrition Acuity: 3-Mild Follow Up Date: Oct 13, 2018 Nutritional Comment: 10/09 Pt admitted for weakness s/p subdurmal hematoma. Pt on diabetic diet and ate 25% of first meal in facility. No current labs, wt or ht. Will cont to monitor and encourage intake. BK 10/12/18: Spoke with pt this afternoon. Pt states appetite has been poor since hospital admit. Typically good appetite eats 3 meals/day at home. Has lost ~10 lbs since 10/04/18. Eating 72% on average, however, pt states his intake is low compared to home. Will offer snacks BID to promote appetite. Discussed foods high in protein to help preserve lean body mass and promote muscle protein synthesis. Will continue to monitor appetite and weight.PETE COLON Oct 12, 2018 15:20
[2018-10-12 15:40] VITALS: BP 151/85
[2018-10-12] MEDS: FLUTICASONE PROP 0.05% 16 GM SCH (20:27)
[2018-10-12] MEDS: amLODIPine BESYL(*) 5 MG TAB PO SCH (20:28)
[2018-10-12] MEDS: DULoxetine HCL 30 MG CAPCR PO SCH (20:28)
[2018-10-12] MEDS: PREGABALIN 75 MG CAPSULE PO SCH (20:28)
[2018-10-12] MEDS: QUEtiapine FUM 25 MG TAB PO SCH (20:28)
[2018-10-12] MEDS: APAP/HYDROCODONE 325/10 TAB PO PRN (20:28)
[2018-10-13] MEDS: ACETAMINOPHEN 500 MG TAB PO SCH ×3 (01:00→17:01)
[2018-10-13 07:27] VITALS: BP 135/78
--- NOTE | 2018-10-13 08:03 | NUR ---
Fentanyl Patch Intact under OpSite
[2018-10-13] MEDS: POLYETHYLENE GLYCOL 17 GM PKT PO SCH ×2 (09:00→20:40)
[2018-10-13] MEDS: DOCUSATE SODIUM 100 MG CAP PO SCH ×2 (09:00→20:40)
[2018-10-13] MEDS: BETAMETHASO/CLOTRIMAZOLE 15 GM TP SCH ×2 (09:31→20:37)
[2018-10-13] MEDS ORDERED: HYOSCYAMINE SULF*0.125 MG SUBL SL PRN (13:40)
[2018-10-13] MEDS: MIRABEGRON 25 MG ER TAB PO SCH (14:09)
[2018-10-13] MEDS: METHENAMINE HIPPURATE 1 GM TAB PO SCH (14:10)
--- NOTE | 2018-10-13 15:30 | NUR ---
5-day and DC MDS completed with pt. C: 13, D: 16, E: no concerns, Q: referral made for [facility]. Further discussion with pt regarding high score on depression screen, pt has diagnosis of chronic depression and takes medication for treatment. Pt not interested in seeing a counselor at present, but already has some options if he decides to do so. Pt also reports his depression is worse while in the hospital, looking forward to discharge to home. Pt denies any suicidal ideation.
[2018-10-13 15:45] VITALS: BP 145/87
[2018-10-13] MEDS: FLUTICASONE PROP 0.05% 16 GM SCH (20:38)
[2018-10-13] MEDS: PREGABALIN 75 MG CAPSULE PO SCH (20:39)
[2018-10-13] MEDS: QUEtiapine FUM 25 MG TAB PO SCH (20:39)
[2018-10-13] MEDS: DULoxetine HCL 30 MG CAPCR PO SCH (20:39)
[2018-10-13] MEDS: APAP/HYDROCODONE 325/10 TAB PO PRN (20:39)
[2018-10-13] MEDS: amLODIPine BESYL(*) 5 MG TAB PO SCH (20:40)
[2018-10-14] MEDS: ACETAMINOPHEN 500 MG TAB PO SCH ×2 (01:00→09:19)
[2018-10-14 07:20] VITALS: BP 135/73
[2018-10-14] MEDS: POLYETHYLENE GLYCOL 17 GM PKT PO SCH (09:00)
[2018-10-14] MEDS: FENTANYL PATCH REMOVAL TP SCH (09:00)
[2018-10-14] MEDS: DOCUSATE SODIUM 100 MG CAP PO SCH (09:00)
[2018-10-14] MEDS: BETAMETHASO/CLOTRIMAZOLE 15 GM TP SCH (09:20)
[2018-10-14] MEDS: MIRABEGRON 25 MG ER TAB PO SCH (09:20)
[2018-10-14] MEDS: METHENAMINE HIPPURATE 1 GM TAB PO SCH (09:20)
[2018-10-14] MEDS: FENTANYL TOP SCH (09:21)
[2018-10-14] MEDS: TDSY TOP SCH (09:21)
[2018-10-14] MEDS ORDERED: ALBU8.5H INH (09:32)
[2018-10-14] MEDS ORDERED: FENT-19 TOP (09:32)
[2018-10-14] MEDS ORDERED: FLUT16SP19 ENA (09:32)
[2018-10-14] MEDS ORDERED: AMLO-127 PO (09:32)
[2018-10-14] MEDS ORDERED: FENT-15 TOP (09:32)
[2018-10-14] MEDS ORDERED: QUET50TA PO (09:32)
[2018-10-14] MEDS ORDERED: PREG75CA60 PO (09:32)
--- NOTE | 2018-10-14 12:32 | PT ECF NOTE ---
Type of Note: Discharge Summary Primary Medical Diagnosis: TBI, subdural hematoma and subarachnoid hemorrhage Physical Therapy Evaluation Date: 10/09/2018 SUBJECTIVE: Prior Hospitalization: 10/04/2018 - 10/09/2018 at [facility] Prior Level of Function: Independent with all ADLs and IADLs, no assistive device use Prior Living Status: Single level house, Spouse Community Services: Independent Home Accessibility: One step into home Equipment Owned: Front wheeled walker Medical Complications/Past Medical History: See EMR Pain Scale (0-10): 0/10 OBJECTIVE: Strength: Right Lower Extremity: DF: Lacking full range Knee extension: Reporting pain, Reports pain where catheter bag was tightly taped to distal leg. Hip flexion: 3+/5 Left Lower Extremity: DF: 4/5 Knee extension: 4/5 Hip flexion: 3+/5 Bed Mobility: SBA Transfers: SBA Assistive Device: Front wheeled walker Gait: SBAx 500 ft Assistive device: Front wheeled walker, 3L of O2 Stairs: ascend/descend 4 stairs CGA Assistive device: rail ASSESSMENT: Pt is nearing goals but has opted to DC home today. Pt safe to DC home at SBA level with his and home health. Problem List/Current Limitations: Decreased activity alok, Decreased strength, Decreased coordination, Decreased balance, and Generalized weakness Short Term Goals: 1. Bobby bed mobility 2. Bobby sit to stand transfers 3. Bobby ability to ambulated 150 ft with use of least restrictive device 4. SBA ability to ascend/descend 1 step Rehabilitation Prognosis: Good Barriers for Discharge: Potential cognitive effects of TBI, Previous baseline level was fully independent PLAN: see above. Thank you for this referral. If you have any questions, concerns, or comments about this report or plan, please contact me at . Lucrecia Hicks, PT, DPT, GCS MTDD
--- NOTE | 2018-10-14 13:53 | Hospitalist Depart ---
Discharge Summary Reason for Hosp/Final Diag: (1) Falls Status: Chronic Hospital Course & Plan: The patient had been having fairly frequent falls with the last resulting in traumatic brain injury. See below. He was transferred from [facility] to [facility] for ongoing rehabilitation after recent fall with head injury. PT/OT worked with him. He was on multiple centrally acting medications prior to his recent fall. Many were discontinued at [facility] or had doses reduced. He is to follow up with his PCP, Dolores Vasquez, after discharge to further evaluate his medication list. (2) Subarachnoid bleed Status: Acute Hospital Course & Plan: Due to fall. He was evaluated by Trauma/Neurosurgical services and felt to be stable for rehabilitation so was transferred to [facility]. His NSAID (meloxicam) was stopped due to recent bleeding. He was not a candidate for DVT prophylaxis with anticoagulant due to recent bleeding as well. At the time of discharge, the patient was feeling much better. He denied dizziness. He did continue to have a headache behind his right eye, but this was improving. Initially his sleep was disrupted even on his chronic Seroquel but this also improved and he slept very well the night before discharge. His Seroquel was continued during his stay on [facility] because it was a chronic medication for sleep and had been quite effective for him prior to his fall. (3) Subdural hematoma Status: Acute Hospital Course & Plan: The patient also suffered a subdural hematoma from his fall. See above. (4) BRIDGETT on CPAP Status: Chronic Hospital Course & Plan: He is currently on ASV. Will continue with same. (5) Pancytopenia Status: Chronic Hospital Course & Plan: Repeat CBC showed mild anemia (Hgb of 11) but his other indices were within normal limits. (6) Suprapubic catheter Status: Chronic Hospital Course & Plan: The patient's catheter was last changed 10/01/18. (7) History of colostomy Status: Chronic Hospital Course & Plan: No issues during his hospital stay. (8) Prostate cancer Status: Chronic (9) Hypokalemia Status: Chronic Hospital Course & Plan: The patient had been on potassium supplements at home. His potassium was found to be low off of the supplements. He was given an oral supplement prior to discharge and instructed to continue his daily potassium supplement at home. Departure Weight (Pounds): 231 Weight (Ounces): 8.0 Result Diagram: 10/10/18 0636 10/14/18 0609 Condition: Improved Discharge: Home, Home Health PT/OT Follow Up For: PT For Strengthening, OT For ADL's Home Health RN Follow Up For: Cathether Care, Nursing Assessment Home Health OTHER SPATIAL SCIENTIST Follow Up For: ADL Assistance Time Spent: < 30 min Discharge Instructions Home Meds Active Scripts Hyoscyamine Sulfate (LEVSIN-SL) 0.125 Mg Tab.subl, 0.125 MG SL Q6H PRN for SPASMS for 7 Days, #30 CAP 3 Refills Prov:AUTUMN COVARRUBIAS MD 07/21/18 Methenamine Hippurate (HIPREX) 1 Gm Tab, 1 GM PO DAILY for urinary tract infection for 30 Days, #30 TAB 4 Refills Take one tablet daily with a glass of orange juice Prov:AUTUMN COVARRUBIAS MD 07/13/18 Duloxetine Hcl (CYMBALTA) 60 Mg Capsule.dr, 60 MG PO QDAY, #90 CAP 1 Refill Prov:DANIELA CRUZ MD 06/30/18 Acetaminophen/Hydrocodone (HYDROCODON-ACETAMINOPHN 10-325) 1 Each Tab, 1 TAB PO BID PRN for prn, #60 TAB Prov:DANIELA CRUZ MD 03/24/18 Mirabegron (MYRBETRIQ) 50 Mg Tab.er.24h, 50 MG PO DAILY for bladder spasm for 30 Days, #30 CAP 3 Refills Prov:AUTUMN COVARRUBIAS MD 03/17/18 Tizanidine Hcl (TIZANIDINE HCL) 4 Mg Tablet, 4 MG PO BID PRN for pain, spasm, #60 TAB 3 Refills Prov:DANIELA CRUZ MD 01/26/18 Potassium Chloride (KLOR-CON 10) 10 Meq Tablet.er, 10 MEQ PO QDAY, #30 TAB 6 Refills Prov:DANIELA CRUZ MD 07/04/16 Reported Medications Amlodipine Besylate (AMLODIPINE BESYLATE) 10 Mg Tablet, 1 TAB PO QDAY 10/14/18 Fentanyl 12 Mcg Patch (FENTANYL 12 MCG PATCH) 1 Each Patch.td72, 1 PATCH TOP Q48H APPLY ALONG WITH 50 MCG PATCH 10/14/18 Fentanyl 50 Mcg Patch (FENTANYL 50 MCG PATCH) 1 Each Patch.td72, 1 PATCH TOP Q48H APPLY ALONG WITH 12.5 MCG PATCH 10/14/18 Quetiapine Fumarate (QUETIAPINE FUMARATE) 50 Mg Tablet, 1-2 TAB PO HS 10/14/18 Pregabalin (LYRICA) 75 Mg Capsule, 75 MG PO QDAY, CAPSULE 10/14/18 Albuterol Sulfate 90 Mcg/Act (PROAIR HFA 90 MCG/ACT) 8.5 Gm Hfa.aer.ad, 2 PUFF INH Q4-6H PRN for SHORTNESS OF BREATH 10/14/18 Fluticasone Prop 50 Mcg Ns (FLONASE 50 MCG NS) 16 Gm [place].susp, 1 SPRAY MIESHA QDAY PRN for ALLERGY SYMPTOMS 10/14/18 Folic Acid (FOLIC ACID) 1 Mg Tablet, 1 MG PO QDAY, TAB 12/07/15 Cyanocobalamin (Vitamin B-12) (B-12) 1,000 Mcg Tablet.er, 1000 MCG PO QDAY 12/07/15 Discontinued Reported Medications Amlodipine Besylate (AMLODIPINE BESYLATE) 5 Mg Tablet, 1 TAB PO QDAY, TAB 07/09/17 Discontinued Scripts Meloxicam (MELOXICAM) 15 Mg Tablet, 15 MG PO QDAY PRN for pain, #90 TAB 1 Refill Prov:DANIELA CRUZ MD 06/10/18 Fentanyl (Fentanyl) 1 Each Patch.td72, 12 MCG TD Q48H, #15 PATCH Prov:DANIELA CRUZ MD 03/24/18 Fentanyl (Fentanyl) 1 Each Patch.td72, 50 MCG TD Q72H, #15 PATCH Prov:DANIELA CRUZ MD 03/24/18 Pregabalin (LYRICA) 75 Mg Capsule, 75 MG PO BID, #60 CAPSULE 3 Refills Prov:DANIELA CRUZ MD 02/25/18 Quetiapine Fumarate (QUETIAPINE FUMARATE) 50 Mg Tablet, 50 MG PO QHS, #90 TAB 1 Refill Prov:DANIELA CRUZ MD 01/20/18 Follow up Referrals: Family Practice - In One Week @ [facility] with DAREN Ramirez Diet: Regular Activity: As Tolerated, With Walker Special Instructions: Copies to: DOLORES VASQUEZ-BC, ONC ; Venous Thromboembolism Antithrombotics Is Pt On Any Antithrombotics?: No (SAH/SDH) Heart Failure Ejection Fraction %: 58 RVSP (mmHg): 40 NYHA Class: I Is Patient on PETE Inhibitor?: Yes Is Patient on Beta Candida?: No Admission Weight: 236 [id number] Certification Face to Face Home Health Certification Patient's Primary Care Provider: Dolores Vasquez Metal Furniture Repairer-Bc,Onc Institutional Provider conducted the [id number] encounter. Electronic Undersigning Physician Certifies Home Health. I certify that the patient has been under my care and that I had a [id number] encounter that meets the physician vorb-np-hypr encounter requirements with this patient. This patient is home-bound due to safety issues and continues to require assistance with ADL's. I certify that based on my findings, that Nursing, Aides and the following Home Health services are medically necessary: PT and OT Medical Necessity: Nursing, Rehab Date Face to Face Conducted: Oct 14, 2018 DORYS STAPLETON MD Oct 14, 2018 13:53
[2018-10-14] MEDS ORDERED: POTASSIUM CHL 10 MEQ TABCR PO ONE (14:00)
--- NOTE | 2018-10-14 14:27 | NUR ---
OCCUPATIONAL THERAPY Dressing Assistance: Independent Dressing Aid Required: None Bathing Assistance: Independent Bathing Equipment: Seated-shower chair Home Assessment: Not Completed Feeding Assistance: Independent Feeding Specialized Equipment: None Toilet Use: Independent Verbalizes Needs: Yes Understands Precautions: Yes Cooperative: Yes Family Teaching: Yes Occupational Therapy Comment:
--- NOTE | 2018-10-14 14:37 | OT ECF NOTE ---
Type of Note: Discharge Note Primary Medical Diagnosis: TBI due to fall-subdural hematoma Occupational Therapy Evaluation Date: 10/09/18 SUBJECTIVE: Prior Hospitalization: [facility] 10/04/18-10/09/18 Prior Level of Function: independent Prior Living Status: Single level house, Spouse, Assist by family Community Services: Independent Home Accessibility: One step into home, All needs on one level, Walk-in shower Equipment Owned: Medical Complications/Past Medical History: COPD, stenosis of the heart, pacemaker, HTN, chronic anemia Psychosocial Support: and daughter and her are in [facility] Pain Scale (0-10): 0 Hand Dominance: right OBJECTIVE: ROM: Both upper extremities WFL Functional Transfer: Assistive Device: Front wheeled walker Transfer Ability: SBA ADL: Upper body dressing: Assistive device: None Upper body dressing ability: Independent Lower body dressing: Assistive device: None Lower body dressing ability: Independent Toileting: Assistive device: patient has colostomy and super pubic catheter Toileting ability: Independent Grooming/hygiene: Assistive device: Standing Grooming ability: Independent Bathing: Assistive device: Shower chair Bathing ability: Modified Independent ASSESSMENT: Patient presents with decreased independence and safety with self care performance due to fall. Patient was independent with self cares prior. Plan is for the patient to return back home with and assistance from family. Patient has met all skilled OT goals and desires to discharge home at current level of function. Short Term Goals: 1. Patient will be I with UB dressing GOAL MET 2. Patient will be I with LB dressing GOAL MET 3. Patient will be I with toileting GOAL MET 4. Patient will be I with grooming and hygiene at sinkfront GOAL MET Parole Supervisor Goals: return back home with family, family would like home health services upon discharge Patient Goals: return back home Rehabilitation Prognosis: Good Barriers to Discharge: none PLAN: The patient plans to discharge home with services and assist from family as needed. Thank you for this referral. If you have any questions, concerns, or comments about this report or plan, please contact me at . Pam Avitia MS, OTR/L Occupational Therapist RHETT
--- NOTE | 2018-10-19 08:41 | NUR ---
Categorical determination paperwork faxed to [facility] at [phone]. LT101 never completed by state, sent what information was available.
== END 2018-10-14 14:50 | disposition home health service (06) | DRG 949 ==
LOC: UNDOADMIN 08:37 → SWB 08:37 → ECF 09:00 → SWB 09:00
PROVIDERS: ADMIT Internal Medicine; ATTEND Internal Medicine
DX: S06.5X9D Traumatic subdural hemorrhage with loss of consciousness of unspecified duration, subsequent encounter (principal); D61.818 Other pancytopenia; W19.XXXD Unspecified fall, subsequent encounter; S06.6X9D Traumatic subarachnoid hemorrhage with loss of consciousness of unspecified duration, subsequent encounter; E78.00 Pure hypercholesterolemia, unspecified; J44.9 Chronic obstructive pulmonary disease, unspecified; Z91.81 History of falling; G47.33 Obstructive sleep apnea (adult) (pediatric); Z93.59 Other cystostomy status; C61 Malignant neoplasm of prostate; E87.6 Hypokalemia
CPT/HCPCS: 36415; 82040; 82247; 82310; 82374; 82435; 82565; 82947; 84075; 84132; 84155; 84295; 84450; 84460; 84520; 85025; 87324; 87449; 97161; 97165

== ENCOUNTER → 2018-11-02 | Outpatient (CLI) | payer MEDICARE, OTHER ==
[2017-04-29 08:08] VITALS: BMI 32.1
[~2018-11-02] MED LIST changes: +ALBU8.5H INH; +AMLO-127 PO; +FENT-15 TOP; +FENT-19 TOP; +FLUT16SP19 ENA
--- NOTE | 2018-11-02 16:53 | RADIOLOGY IMAGING REPORT ---
FACILITY: [facility] [place] PATIENT NAME: Cal Arboleda : 1940 MR: [id number] V: [id number] EXAM DATE: ORDERING PHYSICIAN: MAYLIN BELL TECHNOLOGIST: Location: [facility] Patient: Cal Arboleda : 1940 Visit/Account:[id number] Date of Sevice: 11/02/[address] scan without contrast HISTORY: Fall COMPARISONS: October 04, 2018 TECHNIQUE: Non-contrast head CT was performed with sagittal and coronal reformations. One of the following dose optimization techniques was utilized in the performance of this exam: autom ated exposure control; adjustment of the mA and/or kV according to patient size; or use of iterative reconstruction technique. Specific details can be referenced in the facility's radiology CT exam ope rational policy. FINDINGS: The basal cisterns, martinez-white differentiation and convexity sulci are maintained. Normal orbital so ft tissues. No hydrocephalus or midline shift. Unchanged patchy white matter hypoattenuation. Trace minimally dense right frontal region residual subdural hemorrhage remains which has significant ly decreased, axial image 64. Clear mastoid air cells, clear paranasal sinuses and normal osseous structures. IMPRESSION: Trace minimally dense right frontal region subdural hemorrhage remains and has decreased compared to prior. No new intracranial hemorrhage. Report Dictated By: Vinny Gonsalez MD at 11/02/2018 4:40 PM Report E-Signed By: Vinny Gonsalez MD at 11/02/2018 4:45 PM WSN:[id number]
== END ==
LOC: CT 08:36
PROVIDERS: ATTEND Physician Assistant
DX: S06.9X9A Unspecified intracranial injury with loss of consciousness of unspecified duration, initial encounter (principal)
CPT/HCPCS: 70450